=== PATIENT | male | born 1945 | race Hispanic/Latino ===

== ENCOUNTER 2016-12-14 18:23 | Inpatient (IN) | payer MEDICARE, BC ==
--- OUTSIDE RECORDS SUMMARY | 2016-12-14 19:03 | XMS REPORT | Continuity of Care Document ---
:1945 Author Organization [facility] ([facility]) Address [address] [place] [address] Phone [phone] Care Team Providers Name Role Phone Yakelin Rousseau Primary Care Provider [phone] Source Comments This disclosure is being made pursuant to the Care Everywhere program, applicable federal and state laws, and may not contain all informaitonavailable regarding this patient.[facility] ([facility]) Active Allergies and Adverse Reactions Allergen Noted Date Severity Reactions Comments Hydrocodone Bitartrate 12/18/2014 Unknown Hydrocodone-Acetaminophen 05/02/2011 OTHER "Gets cold" Disoriented. Other drugs in this classification as well. Current Medications Prescription Sig. Disp. Refills Start Date End Date Status atorvastatin (LIPITOR) Take 40 mg by mouth Active 80 mg tablet daily furosemide 40 mg Take 40 mg by mouth Active tablet daily. Insulin Asp inject subcutaneously Active Prt-Insulin Aspart 100 2 times daily. unit/mL (70-30) Soln metFORMIN 1,000 mg Take 1,000 mg by mouth 10/02/2012 Active tablet 2 times daily nortriptyline 25 mg Take 25 mg by mouth 05/27/2012 Active capsule daily Take 2 capsules daily carvedilol 12.5 mg Take 12.5 mg by mouth 05/27/2012 Active tablet 2 times daily LEVOTHYROXINE 100 mcg Take 100 mcg by mouth 03/22/2015 Active tablet daily. LATANOPROST 0.005 % 03/11/2015 Active ophthalmic solution LISINOPRIL 10 mg Take 10 mg by mouth 2 05/04/2015 Active tablet times daily SUPPLY insulin syringe 04/25/2015 Active w/ needle U-100 1 mL 30 g x 5/16" allopurinol 100 mg daily. 10/06/2015 Active tablet ergocalciferol 11/02/2015 Active (VITAMIN D2) 50,000 unit capsule fluticasone 50 11/16/2015 Active mcg/Actuation nasal spray NOVOLIN 70/30 100 11/23/2015 Active unit/mL injection vial potassium chloride 10 10/09/2015 Active mEq XR tablet traMADol 50 mg tablet Take 100 mg by mouth 2 11/30/2015 Active times daily as needed. VENTOLIN HFA 90 07/09/2016 Active mcg/Actuation inhaler aspirin 81 mg EC Take 1 tablet (81 mg 11 08/09/2016 Active tablet total) by mouth daily. Active Problems Problem Noted Date LEARY (dyspnea on exertion) 12/21/2014 Overview: [place]:extensive evaluation of his shortness of breath 2014 including an adenosine Cardiolite scan which demonstrated no evidence for inducible ischemia. Echocardiography demonstrated normal leftventricular function and normal functioning bioprosthetic valve. This was unchanged from previous echocardiograms performed in 2011 as well as 2012. Coronary artery disease 12/18/2014 Overview: Formatting of this note may be different from the original. History of coronary artery bypass grafting surgery and aortic valve replacement utilizing a #23 Magna pericardial bioprosthesis performed in [place] 01/13 CARDIOVASCULAR PROCEDURES ECHO/MUGA: Echo (Normal LV function. 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 Pulse 72 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 Temperature - - Respiratory Rate - - Height 1.702 m (5' 7") 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 Weight 113.853 kg (251 lb) 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 Body Mass Index 39.3 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 Oxygen Saturation - - Plan of Care Date Type Specialty Providers Description 02/12/2017 Appointment Heart and Vascular Sangita Womack MD Chief Comp: Patient [address] [place] [address] Visit [phone] (Fax) Health Maintenance Due Date Last Done Comments Hepatitis B Vaccine (1 of 3 - Primary Series) 1945 Tdap Vaccine 12/29/1954 Lipid Disorder Screening 12/29/1961 Td Vaccine 12/29/1961 Colonoscopy 12/29/1993 Prostate Cancer Screening 12/29/1993 Zoster Vaccine 2003 Pneumococcal Vaccine (1 of 2 - PCV13) 12/29/2008 Influenza Vaccine: Seasonal (#1) 03/05/2016 Results from Last 3 Months Not on file
--- NOTE | 2016-12-14 19:31 | ERNOTE ---
<Cholo Tomlinson - Last Filed: 12/14/16 20:37> Medical Problem HPI - Narrative Date of Service: 12/14/16 - General Chief Complaint: General Assessment Time Seen by Provider: 12/14/16 18:57 Source: patient, family - Immun/Allergies/Home Medications Immunizations: IMMUNIZATION HX Immunizations Up to Date Yes History of Influenza Vaccine No Hx Pneumococcal Vaccination No Allergies/Adverse Reactions: Allergies hydrocodone bitartrate [From Vicodin] Allergy (Verified 12/14/16 20:03) Home Medications: HOME MEDICATIONS Atorvastatin Calcium [Lipitor] 40 mg PO DAILY 02/24/15 [Last Taken Unknown] Carvedilol [Coreg] 12.5 mg PO BID 02/24/15 [Last Taken Unknown] Insul NPH Hu Rec/Ins Rg Hu Rec [Novolin 70/30] 80 units SC BID 02/24/15 [Last Taken Unknown] Levothyroxine Sodium [Synthroid] 100 mcg PO DAILY 02/24/15 [Last Taken Unknown] Lisinopril [Zestril] 10 mg PO BID 02/24/15 [Last Taken Unknown] Potassium Chloride [Klor-Con 10] 10 meq PO DAILY 02/24/15 [Last Taken Unknown] metFORMIN HCL [Glucophage] 1,000 mg PO BIDWM 02/24/15 [Last Taken Unknown] traMADol HCL [Ultram] 50 mg PO Q8H PRN 05/21/15 [Last Taken Unknown] Aspirin [Aspir-Low] 81 mg PO DAILY 12/14/16 [Last Taken Unknown] Furosemide [Lasix] 40 mg PO DAILY 12/14/16 [Last Taken Unknown] Omeprazole 40 mg PO DAILY 12/14/16 [Last Taken Unknown] Wheat Dextrin [Benefiber] 1 each PO DAILY 12/14/16 [Last Taken Unknown] - History of Present History Narrative: ACTING GROGGY AND C/O OF DECREASED VISUAL ACUITY SINCE HE HAD SURGERY AT [facility] ON SATURDAY, ( 11 DECEMBER) FOR LEFT ANKLE FUSION. SAYS HE HAS BEEN TAKING TRAMADOL. HE HAS HX OF TOLERANCE PROBLEMS WITH CODEINE/HYDROCODONE MEDS, BUT HE SAYS HE HAD BEEN TAKING TRAMADOL EVEN BEFORE THE SURGERY WITHOUT PROBLEMS. THEY DENY OTHER NEW MEDS EXCEPT FOR CEPHALEXIN. HE DENIES FOCAL WEAKNESS OR SLURRED SPEECH THOUGH SAYS HE IS VERY SLOW OF SPEECH , ACTING GROGGY. Review of Systems - Review of Systems Constitutional: Present: See HPI EYE: Present: vision changes ENT: Present: no symptoms reported Respiratory: Present: no symptoms reported Cardiology: Present: no symptoms reported Gastrointestinal/Abdominal: Present: no symptoms reported Genitourinary: Present: no symptoms reported Musculoskeletal: Present: no symptoms reported Skin: Present: no symptoms reported Neurological: Present: See HPI Endocrine: Present: no symptoms reported Hematologic/Lymphatic: Present: no symptoms reported Psych: Present: no symptoms reported All Other Systems: All systems neg except as marked - Patient's Past Medical History Patient History - Medical: Arthritis, Diabetes Type 2, Obesity Patient History - Cardiac/Respiratory: Hypertension, Other Patient History - Cancer: No Hx of Cancer Patient History - Surgical Procedures: Coronary Bypass Surgery Patient History - Other: None - Family History Mother Family History - Medical: , History Unknown Father Family History - Medical: Family History - Cardiac/Respiratory: CVA/Stroke Sister Family History - Medical: - Social History Living Situations: home Abuse History: No History of abuse Psych History: Hx of Anxiety Smoking Status: Never smoker Alcohol Use: none Drug Use: none - Immunizations Immunizations Up to Date: Yes Hx Pneumococcal Vaccination: No History of Influenza Vaccine: No Physical Exam - Physical Exam General Appearance: Present: wd/wn - OBESE 70 YO MAN, PLEASANT AND ALERT BUT WITH SLOW VERBAL RESPONSES BUT NOT SLURRED AND SEEMS ORIENTED. , alert, no apparent distress Eye Exam: Normal inspection: bilateral, PERRL: bilateral, EOMI: bilateral Ears, Nose, Throat: Present: normal ENT inspection Neck: Present: normal inspection, nontender Respiratory: Present: no respiratory distress, normal breath sounds, no accessory muscle use, chest nontender Cardiovascular/Chest: Present: regular rate, rhythm, normal peripheral pulses Gastrointestinal/Abdominal: Present: nontender, soft Extremity Exam: Present: normal except - - ANTERIOR TIBIAL VENOUS STASIS ON RIGHT . LEFT LOWER LEG IS SPLINTED WITH PINK TOES WITH GOOD REFILL AND NL SENSATION. Skin Exam: Present: normal color ED Progress - Vital Signs Patient's Vital Signs:: I have reviewed the patient's vital signs. Vital Signs: Vital Signs 12/14/16 18:51 Temperature 36.8 C Pulse Rate 72 Respiratory 18 Rate Blood Pressure 120/47 O2 Sat by Pulse 94 Oximetry - Progress/Reassessment Chief Complaint: General Assessment Progress:: Unchanged - Transfer of Care Physician Sign Out: Cholo Tomlinson Receiving Physician: Sendy Jarrett Expected Disposition: Discharge Departure - Departure Clinical Impression: Decreased visual acuity Medication side effect Qualifiers: Encounter type: initial encounter Qualified Code(s): T88.7XXA - Unspecified adverse effect of drug or medicament, initial encounter Altered mental status, unspecified Qualifiers: Altered mental status type: unspecified Qualified Code(s): R41.82 - Altered mental status, unspecified Disposition: [facility] Condition: Fair <Sendy Jarrett - Last Filed: 12/14/16 20:54> Medical Problem HPI - Immun/Allergies/Home Medications Immunizations: IMMUNIZATION HX Immunizations Up to Date Yes History of Influenza Vaccine No Hx Pneumococcal Vaccination No ED Progress - Vital Signs Vital Signs: Vital Signs 12/14/16 12/14/16 12/14/16 18:51 19:54 20:19 Temperature 36.8 C Pulse Rate 72 71 68 Respiratory 18 18 18 Rate Blood Pressure 120/47 139/48 139/47 O2 Sat by Pulse 94 94 94 Oximetry Plan - Plan Plan: sign out received by previous provider who saw, examined patient and ordered tests/head CT. Pt is here for increased dizziness and somnolence. CT head reveals low area of attenuation right occipital lobe. Can not rule out Acute infarct. Hospitalist[facility]na notified and pt to be admitted
[2016-12-14 19:33] LABS: Hematocrit 33.3 % (42.0-52.0); Mean Corpuscular Hemoglobin 29.4 pg (27-31); Mean Platelet Volume 11.1 fl (6.0-9.5); Neutrophil # 6.8 K/mm3 (1.3-6.0); Neutrophil % 69.3 % (42-75.0); Platelet Count 168 K/mm3 (150-450); Red Blood Count 3.74 M/mm3 (4.7-6.0); Red Cell Distribution Width 14.1 % (11.5-14.0); White Blood Count 9.8 K/mm3 (4.0-10.5)
[2016-12-14 19:36] LABS: Urine Bilirubin Negative (NEGATIVE); Urine Blood Negative /ul (NEGATIVE); Urine Ketone Negative (NEGATIVE); Urine Nitrite Negative (NEGATIVE); Urine Protein 15 mg/dL (NEGATIVE); Urine Specific Gravity 1.015 SP.GR. (1.005-1.030); Urine Urobilinogen Normal (NORMAL)
[2016-12-14 19:42] LABS: Urine Appearance Clear; Urine Bacteria None Seen; Urine Color Dark Yellow; Urine RBC None Seen /hpf (0-5); Urine WBC None Seen /hpf (0-5)
[2016-12-14 19:57] LABS: Albumin * 2.5 gm/dl (3.4-5.0); Anion Gap 13.4 mmol/L (6.8-13.8); BUN/Creatinine Ratio 18.1 (9.0-21.6); Bilirubin, Total 0.7 mg/dL (0.0-1.1); Ca. Corrected For Albumin 9.9 mg/dL (8.4-10.2); Carbon Dioxide 27.3 mmol/L (24-32.6); Potassium 4.7 mmol/L (3.4-4.6); TSH * 0.279 uIU/mL (0.358-3.74); Total Protein 6.5 gm/dL (6.2-8.2)
[2016-12-14 20:33] LABS: Cocaine Ur Negative (NEGATIVE); Urine Barbiturate Negative (NEGATIVE); Urine Benzodiazepines Negative (NEGATIVE); Urine Opiates Negative (NEGATIVE); Urine PCP Negative (NEGATIVE); Urine THC Negative (NEGATIVE)
--- OUTSIDE RECORDS SUMMARY | 2016-12-14 20:40 | XMS REPORT | Continuity of Care Document ---
:1945 Author Organization [facility] ([facility]) Address [address] [place] [address] Phone [phone] Care Team Providers Name Role Phone Yakelin Rousseau Primary Care Provider [phone] Source Comments This disclosure is being made pursuant to the Care Everywhere program, applicable federal and state laws, and may not contain all informaitonavailable regarding this patient.[facility] ([facility]) Active Allergies and Adverse Reactions Allergen [...] a #23 Magna pericardial bioprosthesis performed in [place] 01/13 CARDIOVASCULAR PROCEDURES ECHO/MUGA: Echo (Normal LV [...] Taken Blood Pressure 120/70 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
--- NOTE | 2016-12-14 21:53 | HP ---
Chief Complaint - Chief Complaint Date of Service: 12/14/16 Time of Service: 21:52 Chief Complaint: decreased LOC History of Present Illness: Pt is a 70 year old male pt of Dr. Rousseau who presented to [facility] ER with complaints of decreased LOC and delayed speech. Pt states today he just felt much more tired than usual. Per he was also having decreased speech and blurred eye sight with difficulty gauging distance. Denies n/v, recent illness, fever/chills, headache, confusion or weakness. Last known normal was yesterday ( 12/13/16) evening. Pt just recently (12/11/16) had a fusion of the left ankle joint completed at [facility] in [place]. Pt was prescribed Ultram for pain but has not taken any in two days. PMH includes: aortic stenosis, CAD, DMII, Gout, HLD, HTN, obesity, EARLINE with CPAP use. ER workup included a CT of head which showed a right occipital low attenuation, cannot exclude acute infarct-recommend MRI for f/u . Laboratory findings included: TSH 0.279, Na+138 , K+4.7, h/h 11/33.3, BUN/Creat 21/1.16, WBC 9.8. UA and urine drug screen were negative. He will be admitted to observation overnight for further monitoring and testing. - Patient's Past Medical History Patient History - Medical: Arthritis, Diabetes Type 2, Hypothyroidism, Obesity Patient History - Cardiac/Respiratory: Coronary Heart Disease, Hypertension, CPAP/BiPAP Home Use, Sleep Apnea, Other Patient History - Cancer: No Hx of Cancer Patient History - Surgical Procedures: Coronary Bypass Surgery, Orthopedic - left ankle fusion 12/11/16, carpel tunnel OR Patient History - Other: None - Family History Mother Family History - Medical: , Diabetes Type 1 Family History - Cardiac/Respiratory: No pertinent hx Family History - Cancer: No pertinent family hx Father Family History - Medical: , Diabetes Type 1 Family History - Cardiac/Respiratory: CVA/Stroke Family History - Cancer: No pertinent family hx Sister Family History - Medical: Family History - Cardiac/Respiratory: No pertinent hx Family History - Cancer: History Unknown - Social History Living Situations: home Abuse History: No History of abuse Psych History: Hx of Anxiety Does anyone smoke in the home?: No Smoking Status: Never smoker Have you smoked in the past 12 months: No Alcohol Use: none Drug Use: none - Immunizations Immunizations Up to Date: Yes Hx Pneumococcal Vaccination: More Information Required to Determine History of Influenza Vaccine: Yes Review Of Systems (GEN) - Review of Systems Generalized/Overall Review: Present: Fatigue EENTM: Present: Blurred Vision - with difficulty focusing Respiratory: Present: No Symptoms Reported Cardiac: Present: No Symptoms Reported Abdominal: Present: Diarrhea - states took miralax following constipation post surgery. Genitourinary: Present: No Symptoms Reported Musculoskeletal: Present: No Symptoms Reported Neurological: Present: No Symptoms Reported Skin: Present: No Symptoms Reported Endocrine: Present: No Symptoms Reported Immunizations: IMMUNIZATION HX Immunizations Up to Date Yes History of Influenza Vaccine No Hx Pneumococcal Vaccination No Allergies/Adverse Reactions: Allergies Allergy/AdvReac Type Severity Reaction Status Date / Time hydrocodone bitartrate Allergy Verified 12/14/16 20:03 [From Vicodin] Home Medications: HOME MEDICATIONS Atorvastatin Calcium [Lipitor] 40 mg PO DAILY 02/24/15 [Last Taken Unknown] Carvedilol [Coreg] 12.5 mg PO BID 02/24/15 [Last Taken Unknown] Insul NPH Hu Rec/Ins Rg Hu Rec [Novolin 70/30] 80 units SC BID 02/24/15 [Last Taken Unknown] Levothyroxine Sodium [Synthroid] 100 mcg PO DAILY 02/24/15 [Last Taken Unknown] Lisinopril [Zestril] 10 mg PO BID 02/24/15 [Last Taken Unknown] Potassium Chloride [Klor-Con 10] 10 meq PO DAILY 02/24/15 [Last Taken Unknown] metFORMIN HCL [Glucophage] 1,000 mg PO BIDWM 02/24/15 [Last Taken Unknown] traMADol HCL [Ultram] 50 mg PO Q8H PRN 05/21/15 [Last Taken Unknown] Aspirin [Aspir-Low] 81 mg PO DAILY 12/14/16 [Last Taken 12/14/16] Furosemide [Lasix] 40 mg PO DAILY 12/14/16 [Last Taken Unknown] Omeprazole 40 mg PO DAILY 12/14/16 [Last Taken Unknown] Wheat Dextrin [Benefiber] 1 each PO DAILY 12/14/16 [Last Taken Unknown] Exam - Exam Vital Signs: Vital Signs - Last Taken Temp 37.3 C 12/14/16 21:05 Pulse 70 12/14/16 21:05 Resp 18 12/14/16 21:05 BP 115/53 12/14/16 21:05 Pulse Ox 95 RA 12/14/16 21:05 Constitutional: Present: Alert, Oriented x3, Cooperative, No distress ENT Exam: Present: normal ENT inspection, hearing grossly normal Eye Exam: bilateral eye: normal inspection, PERRL Back Exam: Present: normal inspection Respiratory: Present: chest non-tender, no respiratory distress, no accessory muscle use, decreased breath sounds Cardiovascular/Chest: Present: normal peripheral pulses, regular rate, rhythm, no chest tenderness, no edema, no gallop, no JVD, no murmur Peripheral Pulses: dorsalis-pedis (R): 1+, dorsalis-pedis (L): 0 - YOSSI, radial ( R): 1+, radial (L): 1+ Abdomen: Present: Normal bowel sounds, soft, nontender, nondistended, no rebound tenderness, no hepatospenomegaly Extremity: Present: normal range of motion, non-tender, normal inspection, no calf tenderness, lower extremity edema - +1 nonpitting Skin Exam: Present: normal color, warm/dry, no cyanosis, other - 6inx2.5in area of erythema and warmth to right lower girard, per pt this is chronic, consistent with venous stasis. No calf tenderness present. LLE in cast post left ankle fusion. Lymphatic: Present: no adenopathy Neurologic: Present: no motor/sensory deficits, alert, normal mood/affect, oriented x 3 Appearance: Present: appropriate appearance, appropriate insight, neat, no memory impairment Eye contact: Present: cooperative, good eye contact, normal speech Thoughts: Present: normal thought pattern, no apparent hallucination Diagnostic Studies: Laboratory Results Laboratory Tests 12/14/16 12/14/16 12/14/16 19:28 19:28 19:28 WBC 9.8 Hgb 11.0 L Hct 33.3 L Plt Count 168 Sodium 138 Potassium 4.7 H Anion Gap 13.4 BUN 21 Creatinine 1.16 Random Glucose 99 Total Bilirubin 0.7 AST 21 ALT 26 Alkaline Phosphatase 69 Total Protein 6.5 Albumin 2.5 L TSH 0.279 L Urine Ketones Negative Urine Nitrate Negative Ur Leukocyte Esterase Negative Urine Opiates Screen Barbiturate Screen Ur Phencyclidine Scrn Urine Amphetamine U Benzodiazepines Scrn Urine Cocaine Screen Urine Marijuana (THC) 12/14/16 19:28 WBC Hgb Hct Plt Count Sodium Potassium Anion Gap BUN Creatinine Random Glucose Total Bilirubin AST ALT Alkaline Phosphatase Total Protein Albumin TSH Urine Ketones Urine Nitrate Ur Leukocyte Esterase Urine Opiates Screen Negative Barbiturate Screen Negative Ur Phencyclidine Scrn Negative Urine Amphetamine Negative U Benzodiazepines Scrn Negative Urine Cocaine Screen Negative Urine Marijuana (THC) Negative Assessment/Plan - Assessment/Plan (1) CVA (cerebral vascular accident) Assessment: AMS likely due to right occipital infarct following LLE ankle surgery. Will continue to monitor with Q2H neuro checks over night. Likely need MRI in morning for further evaluation of area. Drug screen and UA negative r/o other causes of AMS. -Neuro checks Q2H -MRI in am Problem: Suspected Qualifiers: Laterality of affected vessel: right (2) Altered mental status, unspecified Assessment: AMS likely due to right occipital infarct following LLE ankle surgery. Will continue to monitor with Q2H neuro checks over night. Hold ASA tonight due to risk of bleeding. Likely need MRI in morning for further evaluation of area. Drug screen and UA negative r/o other causes of AMS. -Neuro checks Q2H -MRI in am Problem: Acute Qualifiers: Altered mental status type: unspecified Qualified Code(s): R41.82 - Altered mental status, unspecified (3) Diabetes mellitus Assessment: Stable -Accu checks ac/hs -Metformin 1000mg BID -NPH 70/30 80U BID -Consistent Carb diet Problem: Chronic Qualifiers: Diabetes mellitus type: type 2 Diabetes mellitus complication status: without complication (4) Hypertension Assessment: BP have been well controlled: Selected Entries 12/14/16 12/14/16 12/14/16 20:19 20:54 21:05 Pulse Rate 68 75 70 Blood Pressure 139/47 144/48 115/53 Blood Pressure 77 80 73 Mean continue to monitor BP closely, maintain SBP <150. Continue current home doses of Lisinopril and Coreg. -VS Q6HR -Continue Lisinopril and Coreg -Maintain SBP <150 Problem: Chronic Qualifiers: Hypertension type: essential hypertension Qualified Code(s): I10 - Essential (primary) hypertension (5) Hypothyroidism Assessment: TSH on admission labs 0.279, will decrease synthroid from 100mcg to 75mcg. Repeat labs as outpt for follow up. -Decrease synthroid Problem: Chronic Qualifiers: Hypothyroidism type: acquired Qualified Code(s): E03.9 - Hypothyroidism, unspecified (6) Left ankle effusion Assessment: S/p OR on 12/11/16 at outside facility. -NWB -Pain control with ibuprofen -Elevate extremity while in bed Problem: Acute
[2016-12-14] MEDS ORDERED: CARVEDILOL 25 MG TABLET ONE (23:28)
[2016-12-14] MEDS: CARVEDILOL 12.5 MG TABLET PO SCH (23:32)
[2016-12-14] MEDS: LISINOPRIL 10 MG TABLET PO SCH (23:33)
[2016-12-15 04:39] LABS: Hematocrit 30.8 % (42.0-52.0); Hemoglobin 10.2 gm/dL (13.5-18.0); Mean Corpuscular Hemoglobin 29.5 pg (27-31); Mean Corpuscular Hgb Conc 33.1 g/dl (32-36); Mean Platelet Volume 11.7 fl (6.0-9.5); Neutrophil # 4.8 K/mm3 (1.3-6.0); Neutrophil % 63.1 % (42-75.0); Platelet Count 159 K/mm3 (150-450); Red Blood Count 3.46 M/mm3 (4.7-6.0); Red Cell Distribution Width 14.4 % (11.5-14.0); White Blood Count 7.7 K/mm3 (4.0-10.5)
[2016-12-15 04:57] LABS: Albumin * 2.2 gm/dl (3.4-5.0); BUN/Creatinine Ratio 17.9 (9.0-21.6); Bilirubin, Total 0.6 mg/dL (0.0-1.1); Ca. Corrected For Albumin 9.8 mg/dL (8.4-10.2); Calcium * 8.7 mg/dL (7.9-10.9); Carbon Dioxide 27.5 mmol/L (24-32.6); Potassium 4.5 mmol/L (3.4-4.6); Total Protein 5.9 gm/dL (6.2-8.2)
[2016-12-15] MEDS ORDERED: LEVOTHYROXINE SODIUM 75 MCG TABLET PO SCH (07:00)
[2016-12-15] MEDS ORDERED: PANTOPRAZOLE SODIUM 40 MG TABLET.EC PO SCH (07:00)
[2016-12-15] MEDS ORDERED: POTASSIUM CHLORIDE 10 MEQ TABLET.SA PO SCH (09:00)
[2016-12-15] MEDS ORDERED: ASPIRIN 81 MG TABLET.DR PO SCH (09:00)
[2016-12-15] MEDS ORDERED: ATORVASTATIN CALCIUM 40 MG TABLET PO SCH (09:00)
[2016-12-15] MEDS ORDERED: PSYLLIUM SEED 1 PACKET PACKET PO SCH (09:00)
[2016-12-15] MEDS ORDERED: FUROSEMIDE 40 MG TABLET PO SCH (09:00)
[2016-12-15] MEDS: LISINOPRIL 10 MG TABLET PO SCH ×2 (09:29→21:23)
[2016-12-15] MEDS: CARVEDILOL 12.5 MG TABLET PO SCH ×2 (09:29→21:23)
[2016-12-15] MEDS: INSUL NPH HU REC/INS RG HU REC 100 UNITS/ML VIAL SC SCH ×2 (09:36→21:28)
--- NOTE | 2016-12-15 19:59 | PN ---
Subjective - Date and Time Seen Date: 12/15/16 Time: 14:00 Objective Objective Narrative: C/o difficulty in seeing objects in both eyes since early this morning; also had similar problems since surgery but not as bad. Occasional dizziness. No weakness in extremities. Pain under control from surgery. - Review of Systems EENTM: Reports: Blurred Vision Respiratory: Denies: Shortness of Breath, Orthopnea Cardiac: Denies: Chest Pain, Edema - Vitals Vitals: Vital Signs Temp 36.8 C 12/15/16 14:51 Pulse 69 12/15/16 14:51 Resp 20 12/15/16 14:51 BP 127/53 12/15/16 14:51 Pulse Ox 95 12/15/16 14:51 - Abnormal Lab Findings Abnormal Lab Findings: Laboratory Tests 12/15/16 04:38 WBC 7.7 D Hgb 10.2 L Hct 30.8 L Plt Count 159 12/15/16 04:38 Plasma Sodium 140 Potassium 4.5 Chloride 103 Carbon Dioxide 27.5 BUN 20 Creatinine 1.12 Est GFR (Non-Af Amer) 68 Random Glucose 178 H D Calcium Adj for Albumin 9.8 Total Bilirubin 0.6 AST 18 ALT 23 Alkaline Phosphatase 62 Total Protein 5.9 L Albumin 2.2 L - Exam Constitutional: Present: Elderly, Obese - in NAD ENT Exam: Present: hearing grossly normal, moist mucous membranes Respiratory: Present: lungs clear, decreased breath sounds - at bases due to obesity. Absent: no accessory muscle use Cardiovascular/Chest: Present: regular rate, rhythm, systolic murmur - II/ at LSB Abdomen: Present: Normal bowel sounds, soft, nontender, obese Extremity: Present: normal range of motion, non-tender Skin Exam: Present: warm/dry, pallor Assessment/Plan Plan Narrative: 1. RT occipital infarct : with decrease in vision. Patient will be started on clopidogrel 75 mg PO daily and atorvastatin 40 mg PO daily today. Will need US of carotids, MRA/ MRI of head on 12/15. Possible neuro consult. May require home health care etc. 2. LT ankle fusion: on 12/11/2016 at [facility]. 3. Other medical conditions: HTN, T2 DM, S/P AVR, EARLINE on CPAP, HLD, hypothyroidism, obesity with BMI 37.0 which are chronic and stable.
[2016-12-15] MEDS ORDERED: ROSUVASTATIN CALCIUM 10 MG TABLET PO SCH ×2 (21:00)
[2016-12-15] MEDS ORDERED: ENOXAPARIN SODIUM 40 MG/0.4 ML SYRG SC SCH (21:00)
--- NOTE | 2016-12-15 21:11 | PN ---
Progess Note - Interim Narrative: 12/15/16 21:07 20:50 Called and spoke with Tiago Mccall in the [facility] neurology department. She advises that since pt visual acuity is continuing to decline, he should be transferred to a higher level of care facility with a stroke center. 20:55 Dr. Giron notified of decision to transfer pt, agreeable to transfer. Pt notified of need to transfer to a higher level of care facility with neurology and certified stroke center. Pt agrees to transfer. 21:10 Transfer department at the [facility] called and paperwork began for transfer.
[2016-12-15 21:12] VITALS: BP 128/53
[2016-12-16] MEDS ORDERED: CLOPIDOGREL BISULFATE 75 MG TABLET PO SCH (09:00)
--- NOTE | 2016-12-19 12:32 | DS ---
Transfer Discharge Summary - Diagnosis(s)/Problems (1) CVA (cerebral vascular accident) Problem: Acute (2) Altered mental status, unspecified Problem: Acute (3) Diabetes mellitus Problem: Chronic (4) Hypertension Problem: Chronic (5) Hypothyroidism Problem: Chronic (6) Left ankle effusion Problem: Acute - Course Description of Stay: Pt was admitted 12/14/16 for CVA of the right occipital lobe following a one week complaint for blurred vision and fatigue after sugery on 12/11/16 for a left ankle fusion. He was admitted to the floor and continued to have decrease in his vision. The [facility] neurology was called and consulted, they recommended to transfer him to there facility (a stroke center) for closer monitoring and follow up. Procedures Performed: none - Medications Medications: Active Medications Discontinued Medications Aspirin (Aspirin Enteric Coated) 81 mg PO DAILY [facility] Stop: 01/14/17 09:01 Last Admin: 12/15/16 09:29 Dose: 81 mg Carvedilol (Coreg) 12.5 mg PO BID [facility]BERT Stop: 01/13/17 22:31 Last Admin: 12/15/16 21:23 Dose: 12.5 mg Enoxaparin Sodium (Lovenox) 40 mg SC HS [facility] Stop: 01/14/17 21:01 Last Admin: 12/15/16 21:28 Dose: 40 mg Furosemide (Lasix) 40 mg PO DAILY [facility] Stop: 01/14/17 09:01 Last Admin: 12/15/16 09:30 Dose: 40 mg Insulin Human Isoph/Insulin Regular (Novolin 70/30) 80 units SC BID [facility] Stop: 01/14/17 09:01 Last Admin: 12/15/16 21:28 Dose: 80 units Levothyroxine Sodium (Synthroid) 75 mcg PO DAILY@0700 [facility] Stop: 01/14/17 07:01 Last Admin: 12/15/16 07:40 Dose: 75 mcg Lisinopril (Zestril) 10 mg PO BID [facility] Stop: 01/13/17 22:31 Last Admin: 12/15/16 21:23 Dose: 10 mg Metformin HCl (Glucophage) 1,000 mg PO BIDWM [facility] Stop: 01/14/17 09:01 Last Admin: 12/15/16 17:00 Dose: 1,000 mg Pantoprazole Sodium (Protonix) 40 mg PO DAILY@0700 [facility] Stop: 01/14/17 07:01 Last Admin: 12/15/16 07:40 Dose: 40 mg Potassium Chloride (Klor-Con 10) 10 meq PO DAILY [facility] Stop: 01/14/17 09:01 Last Admin: 12/15/16 09:31 Dose: 10 meq Psyllium Hydrophilic Mucilloid (Metamucil) 1 each PO DAILY [facility] Stop: 01/14/17 09:01 Last Admin: 12/15/16 09:30 Dose: 1 each Rosuvastatin Calcium (Crestor) 20 mg PO HS [facility] Stop: 01/14/17 21:01 Last Admin: 12/15/16 21:28 Dose: 20 mg - Disposition Disposition: [facility] Condition: Fair Discharge Date: 12/15/16 Discharge Time: 21:30
== END 2016-12-15 22:56 | disposition short-term general hospital (02) | DRG 66 ==
LOC: ER 18:23 → OBSVTOIN 20:36 → MS 20:36
PROVIDERS: ADMIT Nurse Practitioner Gerontology; ATTEND Internal Medicine
DX: I63.8 Other cerebral infarction (principal); R47.01 Aphasia; H53.8 Other visual disturbances; R41.82 Altered mental status, unspecified; I10 Essential (primary) hypertension; E78.5 Hyperlipidemia, unspecified; E03.9 Hypothyroidism, unspecified; E11.9 Type 2 diabetes mellitus without complications; I25.10 Atherosclerotic heart disease of native coronary artery without angina pectoris; Z79.82 Long term (current) use of aspirin; Z79.4 Long term (current) use of insulin; Z95.1 Presence of aortocoronary bypass graft; Z98.1 Arthrodesis status

== ENCOUNTER 2017-01-17 10:45 | Inpatient (IN) | payer MEDICARE, BC ==
--- OUTSIDE RECORDS SUMMARY | 2017-01-17 11:00 | XMS REPORT | Continuity of Care Document ---
:1945 Author Organization [facility] ([facility]) [place] [address] Phone [phone] Care Team Providers Name Role Phone Yakelin Rousseau Primary Care Provider [phone] Source Comments This disclosure is being made pursuant to the Care Everywhere program, applicable federal and state laws, and may not contain all informaitonavailable regarding this patient.[facility] ([facility]) Active Allergies and Adverse Reactions Allergen Noted Date Severity Reactions Comments Hydrocodone Bitartrate 12/18/2014 Unknown Hydrocodone-Acetaminophen 05/02/2011 OTHER "Gets cold" Disoriented. Other drugs in this classification as well. Current Medications Prescription Sig. Disp. Refills Start End Date Status Date metFORMIN 1,000 mg Take 1,000 mg by Active tablet mouth 2 times 3 daily LEVOTHYROXINE 100 Take 100 mcg by Active mcg tablet mouth daily. 5 LATANOPROST 0.005 % Instill 1 Drop Active ophthalmic solution onto both eyes 5 every evening. fluticasone 50 Use 1 [place] into Active mcg/Actuation nasal both nostrils 6 spray daily as needed. VENTOLIN HFA 90 Use 1 Puff by Active mcg/Actuation inhalation daily 6 inhaler as needed. aspirin 81 mg EC Take 1 tablet (81 11 Active tablet mg total) by mouth 7 daily. wheat dextrin Take 1 Dose by Active (BENEFIBER SUGAR mouth daily as FREE (DEXTRIN)) 3 needed. gram/4 gram powd atorvastatin Take 1 tablet (80 Active (LIPITOR) 80 mg mg total) by mouth 7 tablet daily. pantoprazole 40 mg Take 1 tablet (40 Active EC tablet mg total) by mouth 7 daily. metoPROLol tartrate Take 0.5 tablets Active 25 mg tablet (12.5 mg total) by 7 mouth every 12 hours. lisinopril 10 mg Take 1 tablet (10 Active tablet mg total) by mouth 7 daily. gabapentin 100 mg Take 1 capsule Active capsule (100 mg total) by 7 mouth 3 times daily. hydrocortisone 1 % Apply topically 2 30 g Active topical ointment times daily. 7 insulin lispro Inject 1-5 Units Active (HumaLOG) 100 subcutaneously 3 7 unit/mL injection times daily with vial meals. Give even if NPO. Give based on glucose results.GLUCOSE LEVEL (mg/dl)150-199 give [id number] give 2 [id number] give 3 -544 give4 -092 give 5 [id number] or greater - Call Attending apixaban (ELIQUIS) Take 1 tablet (5 60 tablet 0 Active 5 mg tablet mg total) by mouth 7 2 times daily. Please start 12/25/16 IF no bleed on repeat head CT 10 days after stroke insulin nph-regular Inject 5 Units 10 mL Active (HumuLIN 70/30) 100 subcutaneously 7 unit/mL injection daily before vial dinner. insulin nph-regular Inject 24 Units 10 mL Active (HumuLIN 70/30) 100 subcutaneously 7 unit/mL injection every morning vial before breakfast. atorvastatin Take 40 mg by 12/20/19 Discontinued (LIPITOR) 80 mg mouth daily 17 tablet furosemide 40 mg Take 40 mg by 12/20/19 Discontinued tablet mouth daily. 17 carvedilol 12.5 mg Take 12.5 mg by 12/20/19 Discontinued tablet mouth 2 times 2 17 daily LISINOPRIL 10 mg Take 10 mg by 12/20/19 Discontinued tablet mouth 2 times 5 17 daily allopurinol 100 mg Take 100 mg by 12/20/19 Discontinued tablet mouth daily as 6 17 needed (gout flares). NOVOLIN 70/30 100 Inject 80 Units 12/20/19 Discontinued unit/mL injection subcutaneously 2 6 17 vial times daily before meals. potassium chloride Take 10 mEq by 12/20/19 Discontinued 10 mEq XR tablet mouth daily. 6 17 omeprazole 40 mg Take 40 mg by 12/20/19 Discontinued enteric coated mouth daily. 17 capsule Starting 12/04/16 x 4 weeks insulin nph-regular Inject 25 Units 10 mL 12/21/19 Discontinued (HumuLIN 70/30) 100 subcutaneously 7 17 unit/mL injection every morning vial before breakfast. insulin nph-regular Inject 12 Units 10 mL 12/21/19 Discontinued (HumuLIN 70/30) 100 subcutaneously 7 17 unit/mL injection daily before vial dinner. apixaban (ELIQUIS) Take 1 tablet (5 60 tablet 0 12/21/19 Discontinued 5 mg tablet mg total) by mouth 7 17 2 times daily. insulin nph-regular Inject 9 Units 10 mL 12/21/19 Discontinued (HumuLIN 70/30) 100 subcutaneously 7 17 unit/mL injection daily before vial dinner. insulin nph-regular Inject 28 Units 10 mL 12/21/19 Discontinued (HumuLIN 70/30) 100 subcutaneously 7 17 unit/mL injection every morning vial before breakfast. apixaban (ELIQUIS) Take 1 tablet (5 60 tablet 0 12/21/19 Discontinued 5 mg tablet mg total) by mouth 7 17 2 times daily. Please start 12/24/16 apixaban (ELIQUIS) Take 1 tablet (5 60 tablet 0 12/21/19 Discontinued 5 mg tablet mg total) by mouth 7 17 2 times daily. Please start 12/24/16 IF no bleed on repeat head CT 10 days after discharge apixaban (ELIQUIS) Take 1 tablet (5 60 tablet 0 12/21/19 Discontinued 5 mg tablet mg total) by mouth 7 17 2 times daily. Please start 12/24/16 IF no bleed on repeat head CT 10 days after discharge apixaban (ELIQUIS) Take 1 tablet (5 60 tablet 0 12/21/19 Discontinued 5 mg tablet mg total) by mouth 7 17 2 times daily. Please start 12/24/16 IF no bleed on repeat head CT 10 days after stroke insulin nph-regular Inject 20 Units 10 mL 11 12/21/19 Discontinued (HumuLIN 70/30) 100 subcutaneously 7 17 unit/mL injection every morning vial before breakfast. insulin nph-regular Inject 7 Units 10 mL 12/21/19 Discontinued (HumuLIN 70/30) 100 subcutaneously 7 17 unit/mL injection daily before vial dinner. Active Problems Problem Noted Date ELARY (dyspnea on exertion) 12/21/2014 Overview: 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 Normal bioprosthetic AoV) - 05/13/2012 Echo (Normal EF, Normal functioning AVR) - 07/01/2013 Adiposity 05/11/2014 Hypercholesterolemia without hypertriglyceridemia 10/13/2013 Most Recent Encounters Date Type Specialty Providers Description 12/21/2016 Telephone Lacquer Shader Qing Vance [place] [facility] [place] 12/19/2016 Orders/Notes Neurology Christopher Colón MD 12/17/2016 [facility] Chief Comp: Patient Encounter MD Fermin Reported Reason For Visit 12/15/2016 - [facility] General Care [facility] Dx: Adiposity 12/20/2016 Encounter Inpatient - Adult MD Fermin (Primary Dx) 12/15/2016 Telephone Neurology Tiago Mccall Chief Comp: MD Vicente Consultation 11/29/2016 Office Visit Orthopaedic Michael Chief Comp: Patient MD Emili Reported Reason For Visit Immunizations Name Dates Previously Given Next Due Pneumococcal Conjugate, PCV13 (Prevnar 13) 12/20/2016 Social History Tobacco Use Types Packs/Day Years Used Date Never Smoker Smokeless Tobacco: Never Used Alcohol Use Drinks/Week oz/Week Comments No Last Filed Vital Signs Vital Sign Reading Time Taken Blood Pressure 137/50 12/20/2016 11:33 AM CDT Pulse 69 12/20/2016 11:33 AM CDT Temperature 36.5 C (97.7 F) 12/20/2016 11:33 AM CDT Respiratory Rate 19 12/16/2016 5:50 AM CDT Height 1.753 m (5' 9.02") 12/17/2016 2:28 PM CDT Weight 103 kg (227 lb 1.2 oz) 12/17/2016 2:28 PM CDT Body Mass Index 33.52 12/17/2016 2:28 PM CDT Oxygen Saturation 98% 12/20/2016 11:33 AM CDT Plan of Care Date Type Specialty Providers Description 02/12/2017 Appointment Heart and Vascular Sangita Womack MD Chief Comp: Patient [address] [facility] [place] [address] Visit [phone] (Fax) 03/22/2017 Appointment Neurology Indiana Jarrett MD [address] [place] [address] [phone] (Fax) Chief Comp: Patient Anisha Guzmán, [employer] [address] [place] [address] [phone] (Fax) Reported Reason For Visit Health Maintenance Due Date Last Done Comments Hepatitis B Vaccine (1 of 3 - Primary Series) 1945 Tdap Vaccine 12/29/1954 Td Vaccine 12/29/1961 Colonoscopy 12/29/1993 Prostate Cancer Screening 12/29/1993 Zoster Vaccine 2003 Influenza Vaccine: Seasonal (Season Ended) 2017 Pneumococcal Vaccine (2 of 2 - PPSV23) 12/20/2017 12/20/2016 Lipid Disorder Screening 12/16/2021 12/16/2016 Results from Last 3 Months CHEST - AP/PA (12/20/2016 12:06 PM) Impressions Findings / Impression: The portable 90 degrees upright exam does not demonstrate any definite focal lung opacity. The minimal blunting of the CP angles worse on the left side is believed to be from pleural thickening. If clinically concerned can consider a lateral view whenever possible. Postop changes seen in the sternum. The mild prominence of the cardia mediastinal silhouette is likely from the portable nature of the study. Pulmonary edema. No pneumothorax. Trachea central. Narrative Procedure: CHEST - AP/PA Technique: Portable AP chest radiograph Comparison: No prior. Clinical Indication: Pneumonia Procedure Note Saw, Incoming Imaging Results - [place] December 20, 2016 12:28 PM CDT Procedure: CHEST - AP/PA Technique: Portable AP chest radiograph Comparison: No prior. Clinical Indication: Pneumonia IMPRESSION Findings / Impression: The portable 90 degrees upright exam does not demonstrate any definite focal lung opacity. The minimal blunting of the CP angles worse on the left side is believed to be from pleural thickening. If clinically concerned can consider a lateral view whenever possible. Postop changes seen in the sternum. The mild prominence of the cardia mediastinal silhouette is likely from the portable nature of the study. Pulmonary edema. No pneumothorax. Trachea central. BLOOD GLUCOSE, BEDSIDE (12/20/2016 11:36 AM)Only the most recent of21 resultswithin the time period is included. Component Value Range Glucose, Accu-Chek 234(H) 65-99 mg/dL Specimen Blood, capillary DIFFERENTIAL (12/20/2016 7:14 AM)Only the most recent of5 resultswithin the time period is included. Component Value Range % Neutrophils-Auto Diff 62.4 % Neutrophils-Auto Diff 6960 6809-9606 /MM3 % Lymphocytes-Auto Diff 25.2 % Lymphocytes-Auto Diff 2810 875-3300 /MM3 % Monocytes-Auto Diff 10.2 % Monocytes-Auto Diff 1140(H) 130-860 /MM3 % Eosinophils-Auto Diff 1.5 % Eosinophils-Auto Diff 170 40-390 /MM3 % Basophils 0.3 % Basophils-Auto Diff 30 10-136 /MM3 % Immature Granulocytes-Auto Diff 0.4 % Immature Granulocytes-Auto Diff 50 /MM3 Specimen Whole Blood CBC (COMPLETE BLOOD COUNT) (12/20/2016 7:14 AM)Only the most recent of5 resultswithin the time period is included. Component Value Range WBC Count 11.2(H) 3.7-10.5 K/MM3 RBC Count 3.73(L) 4.50-6.20 M/MM3 Hemoglobin 10.6(L) 13.2-17.7 g/dL Hematocrit 33(L) 40-52 % MCV (Mean Corpuscular Volume) 88 82-99 FL MCH (Mean Corpuscular Hemoglobin) 28 25-35 PG MCHC (Mean Corpuscular Hemoglobin Concentration) 32 32-36 % Platelet Count 250 150-400 K/MM3 MPV (Mean Platelet Volume) 12.5(H) 9.4-12.3 FL RBC Dist Width-STD 45.1(H) 35.1-43.9 FL RBC Distrib Width 14.1 9.0-14.5 % Nucleated RBC 0 /100 WBC Specimen Whole Blood PHOSPHORUS (12/20/2016 7:14 AM)Only the most recent of5 resultswithin the time period is included. Component Value Range Phosphorus 2.9Comment:New reference range installed 05/17/15. 2.5-4.5 mg/dL Specimen Blood MAGNESIUM (12/20/2016 7:14 AM)Only the most recent of5 resultswithin the time period is included. Component Value Range Magnesium 2.0 1.5-2.9 mg/dL Specimen Blood CBC WITH DIFFERENTIAL (12/20/2016 7:14 AM)Only the most recent of5 resultswithin the time period is included. Specimen Whole Blood Narrative The following orders were created for panel order CBC WITH DIFFERENTIAL. Procedure Abnormality Status --------- ------ CBC (COMPLETE BLOOD COUNT)[[id number]] AbnormalFinal result DIFFERENTIAL[[id number]] AbnormalFinal result Please view results for these tests on the individual orders. BASIC METABOLIC PANEL W/ CALCIUM (CHEM 8) (12/20/2016 7:14 AM)Only the most recent of5 resultswithin the time period is included. Component Value Range Sodium 139 135-145 mEq/L Potassium 4.2 3.5-5.0 mEq/L Chloride 103 95-107 mEq/L CO2 21(L) 22-29 mEq/L BUN 13 10-20 mg/dL Creatinine 1.1Comment: 0.6-1.2 mg/dL Creatinine switched to enzymatic method on 12/12/2010.GFR equation switched to IDMS-traceable MDRD equation on 12/12/2010. Calculated GFR values are not valid in clinical settings where serum creatinine is changing. 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 No evidence of vegetation on prosthetic or [place] heart valves. No thrombus is detected in the left atrial appendage. No right to left shunt by saline contrast Patient Height (cm) 175.3 cm Patient Weight (kg) 113.4 kg Systolic Pressure (mmHg) 146 mmHg Diastolic Pressure (mmHg) 64 mmHg BSA (meters^2) 2.3 m^2 Left Ventricle (LV) Probably enlarged left ventricular chamber size. Normal LV wall thickness. Normal left ventricular systolic function. LV Ejection Fraction=55-60% (based on visual estimate). No regional wall motion abnormalities noted. Right Ventricle (RV) Probably normal right ventricular size Probably normal right ventricular systolic function. Left and Right Atria (LA, RA) LA chamber size: enlarged. No thrombus is detected in the left atrial appendage. Enlarged right atrial size. The interatrial septum is intact with no evidence for an atrial septal defect. No interatrial shunt visualized by color doppler No right to left shunt by saline contrast Mitral Valve (MV) Normal mitral valve leaflet morphology Mild mitral regurgitation by Doppler. Tricuspid Valve (TV) Normal tricuspid valve morphology There are no mobile echodensities seen on the TV to support endocarditis. No significant tricuspid regurgitation by color doppler Aortic Valve (AoV) There is a bioprosthetic aortic valve. Bioprosthetic leaflets are thin and move normally. 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 Trace aortic insufficiency Pulmonic Valve (PV) Probably normal pulmonic valve No pulmonic valvular regurgitation by doppler Aorta and Pulmonary Artery (Ao, PA) The aortic root is normal size. No descending aorta atherosclerotic plaques noted Pericardium/Pleura There is no pericardial effusion. Procedures Color Flow ([id number]) KANDIS ([id number]) Saline bubble study ([id number]) Informed consent was obtained after thorough explanation of the procedure, risks and benefits, with time allowed for the patient or patient junior sales representative's concerns and questions Pre-procedure ASA Category III PreProcedure GL=964/66 mmHg. PreProcedure HR=64 bpm Pre Procedure O2 Sat=94 %. Pre Procedure RR=20 per min. Height=69 in . Wsoext=003 in . BSA=2.35 m^2. KANDIS probe inserted proceeded without difficulty or apparent complications. KANDIS scope number 006 utilized for this exam. Post Procedure OU=189/56 mmHg. Post Procedure HR=63 bpm Post Procedure O2 Sat=97 %. Post Procedure RR=16 per min. Versed 3mg IV Fentanyl 50mcg IV Patient recovery: Patient recovered and dismissed in stable condition I was present for the entire procedure I was present for the bucio portions of the procedure defined as conscious sedation, KANDIS probe insertion, Echo imaging, Probe removal, and patient recovery Inf. Vena Cava (IVC) / Pulm. Veins The following pulmonary veins were noted in normal position: 'all 4 pulmonary veins' . 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 Component Value Range CRP (C-Reactive Protein) 3.1(H) <=0.5 mg/dL Specimen Blood ECG - EKG 12 LEAD (12/16/2016 8:21 AM) Component Value Range ECG SEVERITY - BORDERLINE ECG - VENT. RATE 64 bpm RR 938 ms P-R INTERVAL 208 ms QRSD INTERVAL 94 ms QT INTERVAL 392 ms QTC INTERVAL 405 ms P AXIS -9 degrees QRS AXIS 28 degrees T WAVE AXIS 53 degrees REPORT SINUS RHYTHM BORDERLINE INFERIOR Q WAVES Interpreting Physician: Tony Horton MD EXTERNAL CT - STORE ONLY (12/16/2016 7:49 AM)MRI BRAIN W/WO CONTRAST ([id number]) ( 12/16/2016 4:08 AM) Impressions Impression: 1. Right EMBALMER/FUNERAL DIRECTOR distribution acute infarct. 2. Minimal flow/ signal in the right EMBALMER/FUNERAL DIRECTOR P2 segment and beyond. 3. Scattered tiny foci of stability artifact thought to reflect hypertensive microbleeds. 4. 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 Results of the procedure were given to: PERSON CONTACTED:Katarzyna DATE: 12/16/2016 TIME CALLED:520 PHONE/PAGER:[phone] This final report is in agreement with the critical and emergent preliminary findings reported by the interventional radiology technologist tester semiconductor packages. Narrative Procedure: MRI BRAIN W/WO CONTRAST ([id number]), MRI ORBIT W/WO CONTRAST ([id number]), MRA HEAD AND NECK W/WO CONTRAST ([id number], [id number]) Indication: CVA/progressive blindness Technique: 1. Multisequence, multiplanar MRI of the brain before and after the uneventful administration of 11 mL GadavistIV contrast. 2. Multisequence, multiplanar MRA of the neck before and after the uneventful administration of 11 mL GadavistIV contrast. Source and MIP images were obtained and reviewed. 3D images were processed on a separate workstation. 3. Multisequence, multiplanar MRA of the head before and after the uneventful administration of 11 mL GadavistIV contrast. Source and MIP images were obtained and reviewed. 3D images were processed on a separate workstation. 4. Multisequence, multiplanar MRI of the orbits before and after the uneventful administration of 11 mL Gadavist IV contrast. Comparison: None Findings: - MRI Brain: Large region of restricted diffusion with associated high T2/FLAIR signal in the right occipitotemporal region. Punctate focus of GRE/SWI blooming may represent microhemorrhage or thrombus. Scattered foci of high T2/FLAIR signal in the periventricular white matter consistent with chronic ischemic small vessel disease. There is no acute infarct, intracranial mass, or intra or extra-axial hemorrhage. No suspicious lesions or areas of abnormal enhancement. The ventricles, cortical sulci and basal cisterns are symmetric and appropriate. Normal brainstem and posterior fossa. The pituitary and suprasellar region are unremarkable. Major intracranial flow-voids are preserved. The paranasal sinuses are clear. Fluid present in the left mastoid air cells. Normal bone marrow signal. - MRI Orbit: The optic nerves are normal bilaterally. The extraocular muscles, globes, and orbits appear normal. The cavernous sinuses and superior ophthalmic veins are normal. There is normal signal intensity in the visualized portions of the paranasal sinuses. - MRA Neck: There is classic aortic branching without significant ostial stenosis. There is normal course and caliber of the common carotid arteries. Internal and external carotid arteries are within normal limits. The vertebral arteries originate from the subclavian arteries without significant ostial stenosis. There is normal course and caliber of the right vertebral artery. The left vertebral artery is hypoplastic. - MRA Head: The distal internal carotid arteries are unremarkable. Normal distal right vertebral and basilar arteries. The left vertebral artery terminates in PICA. There is no significant stenosis in the anterior, middle or posterior cerebral arteries. No evidence of aneurysm or malformation. 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 Minimal flow in the posterior right P2 and beyond. Hypoplastic right P1. - Extravascular Findings: Grossly normal thyroid and paravertebral soft tissues. Procedure Note Saw, Incoming Imaging Results - [place] December 16, 2016 10:43 AM CDT Procedure: MRI BRAIN W/WO CONTRAST ([id number]), MRI ORBIT W/WO CONTRAST ([id number]), MRA HEAD AND NECK W/WO CONTRAST ([id number], [id number]) Indication: CVA/progressive blindness Technique: 1. Multisequence, multiplanar MRI of the brain before and after the uneventful administration of 11 mL Gadavist IV contrast. 2. Multisequence, multiplanar MRA of the neck before and after the uneventful administration of 11 mL Gadavist IV contrast. Source and MIP images were obtained and reviewed. 3D images were processed on a separate workstation. 3. Multisequence, multiplanar MRA of the head before and after the uneventful administration of 11 mL Gadavist IV contrast. Source and MIP images were obtained and reviewed. 3D images were processed on a separate workstation. 4. Multisequence, multiplanar MRI of the orbits before and after the uneventful administration of 11 mL Gadavist IV contrast. Comparison: None Findings: - MRI Brain: Large region of restricted diffusion with associated high T2/FLAIR signal in the right occipitotemporal region. Punctate focus of GRE/SWI blooming may represent microhemorrhage or thrombus. Scattered foci of high T2/FLAIR signal in the periventricular white matter consistent with chronic ischemic small vessel disease. There is no acute infarct, intracranial mass, or intra or extra-axial hemorrhage. No suspicious lesions or areas of abnormal enhancement. The ventricles, cortical sulci and basal cisterns are symmetric and appropriate. Normal brainstem and posterior fossa. The pituitary and suprasellar region are unremarkable. Major intracranial flow-voids are preserved. The paranasal sinuses are clear. Fluid present in the left mastoid air cells. Normal bone marrow signal. - MRI Orbit: The optic nerves are normal bilaterally. The extraocular muscles, globes, and orbits appear normal. The cavernous sinuses and superior ophthalmic veins are normal. There is normal signal intensity in the visualized portions of the paranasal sinuses. - MRA Neck: There is classic aortic branching without significant ostial stenosis. There is normal course and caliber of the common carotid arteries. Internal and external carotid arteries are within normal limits. The vertebral arteries originate from the subclavian arteries without significant ostial stenosis. There is normal course and caliber of the right vertebral artery. The left vertebral artery is hypoplastic. - MRA Head: The distal internal carotid arteries are unremarkable. Normal distal right vertebral and basilar arteries. The left vertebral artery terminates in PICA. There is no significant stenosis in the anterior, middle or posterior cerebral arteries. No evidence of aneurysm or malformation. 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 Minimal flow in the posterior right P2 and beyond. Hypoplastic right P1. - Extravascular Findings: Grossly normal thyroid and paravertebral soft tissues. IMPRESSION Impression: 1. Right EMBALMER/FUNERAL DIRECTOR distribution acute infarct. 2. Minimal flow/ signal in the right EMBALMER/FUNERAL DIRECTOR P2 segment and beyond. 3. Scattered tiny foci of stability artifact thought to reflect hypertensive microbleeds. 4. 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 Results of the procedure were given to: PERSON CONTACTED: Xcedexicher DATE: 12/16/2016 TIME CALLED: [phone] PHONE/PAGER: [phone] This final report is in agreement with the critical and emergent preliminary findings reported by the interventional radiology technologist tester semiconductor packages. MRI ORBIT W/WO CONTRAST ([id number]) (12/16/2016 4:06 AM) Impressions Impression: 1. Right EMBALMER/FUNERAL DIRECTOR distribution acute infarct. 2. Minimal flow/ signal in the right EMBALMER/FUNERAL DIRECTOR P2 segment and beyond. 3. Scattered tiny foci of stability artifact thought to reflect hypertensive microbleeds. 4. 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 Results of the procedure were given to: PERSON CONTACTED:[email or web address] DATE: 12/16/2016 TIME CALLED:[phone] PHONE/PAGER:[phone] This final report is in agreement with the critical and emergent preliminary findings reported by the interventional radiology technologist tester semiconductor packages. Narrative Procedure: MRI BRAIN W/WO CONTRAST ([id number]), MRI ORBIT W/WO CONTRAST ([id number]), MRA HEAD AND NECK W/WO CONTRAST ([id number], [id number]) Indication: CVA/progressive blindness Technique: 1. Multisequence, multiplanar MRI of the brain before and after the uneventful administration of 11 mL GadavistIV contrast. 2. Multisequence, multiplanar MRA of the neck before and after the uneventful administration of 11 mL GadavistIV contrast. Source and MIP images were obtained and reviewed. 3D images were processed on a separate workstation. 3. Multisequence, multiplanar MRA of the head before and after the uneventful administration of 11 mL GadavistIV contrast. Source and MIP images were obtained and reviewed. 3D images were processed on a separate workstation. 4. Multisequence, multiplanar MRI of the orbits before and after the uneventful administration of 11 mL Gadavist IV contrast. Comparison: None Findings: - MRI Brain: Large region of restricted diffusion with associated high T2/FLAIR signal in the right occipitotemporal region. Punctate focus of GRE/SWI blooming may represent microhemorrhage or thrombus. Scattered foci of high T2/FLAIR signal in the periventricular white matter consistent with chronic ischemic small vessel disease. There is no acute infarct, intracranial mass, or intra or extra-axial hemorrhage. No suspicious lesions or areas of abnormal enhancement. The ventricles, cortical sulci and basal cisterns are symmetric and appropriate. Normal brainstem and posterior fossa. The pituitary and suprasellar region are unremarkable. Major intracranial flow-voids are preserved. The paranasal sinuses are clear. Fluid present in the left mastoid air cells. Normal bone marrow signal. - MRI Orbit: The optic nerves are normal bilaterally. The extraocular muscles, globes, and orbits appear normal. The cavernous sinuses and superior ophthalmic veins are normal. There is normal signal intensity in the visualized portions of the paranasal sinuses. - MRA Neck: There is classic aortic branching without significant ostial stenosis. There is normal course and caliber of the common carotid arteries. Internal and external carotid arteries are within normal limits. The vertebral arteries originate from the subclavian arteries without significant ostial stenosis. There is normal course and caliber of the right vertebral artery. The left vertebral artery is hypoplastic. - MRA Head: The distal internal carotid arteries are unremarkable. Normal distal right vertebral and basilar arteries. The left vertebral artery terminates in PICA. There is no significant stenosis in the anterior, middle or posterior cerebral arteries. No evidence of aneurysm or malformation. 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 Minimal flow in the posterior right P2 and beyond. Hypoplastic right P1. - Extravascular Findings: Grossly normal thyroid and paravertebral soft tissues. Procedure Note Saw, Incoming Imaging Results - [place] December 16, 2016 10:43 AM CDT Procedure: MRI BRAIN W/WO CONTRAST ([id number]), MRI ORBIT W/WO CONTRAST ([id number]), MRA HEAD AND NECK W/WO CONTRAST ([id number], [id number]) Indication: CVA/progressive blindness Technique: 1. Multisequence, multiplanar MRI of the brain before and after the uneventful administration of 11 mL Gadavist IV contrast. 2. Multisequence, multiplanar MRA of the neck before and after the uneventful administration of 11 mL Gadavist IV contrast. Source and MIP images were obtained and reviewed. 3D images were processed on a separate workstation. 3. Multisequence, multiplanar MRA of the head before and after the uneventful administration of 11 mL Gadavist IV contrast. Source and MIP images were obtained and reviewed. 3D images were processed on a separate workstation. 4. Multisequence, multiplanar MRI of the orbits before and after the uneventful administration of 11 mL Gadavist IV contrast. Comparison: None Findings: - MRI Brain: Large region of restricted diffusion with associated high T2/FLAIR signal in the right occipitotemporal region. Punctate focus of GRE/SWI blooming may represent microhemorrhage or thrombus. Scattered foci of high T2/FLAIR signal in the periventricular white matter consistent with chronic ischemic small vessel disease. There is no acute infarct, intracranial mass, or intra or extra-axial hemorrhage. No suspicious lesions or areas of abnormal enhancement. The ventricles, cortical sulci and basal cisterns are symmetric and appropriate. Normal brainstem and posterior fossa. The pituitary and suprasellar region are unremarkable. Major intracranial flow-voids are preserved. The paranasal sinuses are clear. Fluid present in the left mastoid air cells. Normal bone marrow signal. - MRI Orbit: The optic nerves are normal bilaterally. The extraocular muscles, globes, and orbits appear normal. The cavernous sinuses and superior ophthalmic veins are normal. There is normal signal intensity in the visualized portions of the paranasal sinuses. - MRA Neck: There is classic aortic branching without significant ostial stenosis. There is normal course and caliber of the common carotid arteries. Internal and external carotid arteries are within normal limits. The vertebral arteries originate from the subclavian arteries without significant ostial stenosis. There is normal course and caliber of the right vertebral artery. The left vertebral artery is hypoplastic. - MRA Head: The distal internal carotid arteries are unremarkable. Normal distal right vertebral and basilar arteries. The left vertebral artery terminates in PICA. There is no significant stenosis in the anterior, middle or posterior cerebral arteries. No evidence of aneurysm or malformation. 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 Minimal flow in the posterior right P2 and beyond. Hypoplastic right P1. - Extravascular Findings: Grossly normal thyroid and paravertebral soft tissues. IMPRESSION Impression: 1. Right EMBALMER/FUNERAL DIRECTOR distribution acute infarct. 2. Minimal flow/ signal in the right EMBALMER/FUNERAL DIRECTOR P2 segment and beyond. 3. Scattered tiny foci of stability artifact thought to reflect hypertensive microbleeds. 4. 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 Results of the procedure were given to: PERSON CONTACTED: [email or web address] DATE: 12/16/2016 TIME CALLED: [phone] PHONE/PAGER: [phone] This final report is in agreement with the critical and emergent preliminary findings reported by the interventional radiology technologist tester semiconductor packages. MRA HEAD AND NECK W/WO CONTRAST ([id number], [id number]) (12/16/2016 4:06 AM) Impressions Impression: 1. Right EMBALMER/FUNERAL DIRECTOR distribution acute infarct. 2. Minimal flow/ signal in the right EMBALMER/FUNERAL DIRECTOR P2 segment and beyond. 3. Scattered tiny foci of stability artifact thought to reflect hypertensive microbleeds. 4. 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 Results of the procedure were given to: PERSON CONTACTED:[email or web address] DATE: 12/16/2016 TIME CALLED:[phone] PHONE/PAGER:[phone] This final report is in agreement with the critical and emergent preliminary findings reported by the interventional radiology technologist tester semiconductor packages. Narrative Procedure: MRI BRAIN W/WO CONTRAST ([id number]), MRI ORBIT W/WO CONTRAST ([id number]), MRA HEAD AND NECK W/WO CONTRAST ([id number], [id number]) Indication: CVA/progressive blindness Technique: 1. Multisequence, multiplanar MRI of the brain before and after the uneventful administration of 11 mL GadavistIV contrast. 2. Multisequence, multiplanar MRA of the neck before and after the uneventful administration of 11 mL GadavistIV contrast. Source and MIP images were obtained and reviewed. 3D images were processed on a separate workstation. 3. Multisequence, multiplanar MRA of the head before and after the uneventful administration of 11 mL GadavistIV contrast. Source and MIP images were obtained and reviewed. 3D images were processed on a separate workstation. 4. Multisequence, multiplanar MRI of the orbits before and after the uneventful administration of 11 mL Gadavist IV contrast. Comparison: None Findings: - MRI Brain: Large region of restricted diffusion with associated high T2/FLAIR signal in the right occipitotemporal region. Punctate focus of GRE/SWI blooming may represent microhemorrhage or thrombus. Scattered foci of high T2/FLAIR signal in the periventricular white matter consistent with chronic ischemic small vessel disease. There is no acute infarct, intracranial mass, or intra or extra-axial hemorrhage. No suspicious lesions or areas of abnormal enhancement. The ventricles, cortical sulci and basal cisterns are symmetric and appropriate. Normal brainstem and posterior fossa. The pituitary and suprasellar region are unremarkable. Major intracranial flow-voids are preserved. The paranasal sinuses are clear. Fluid present in the left mastoid air cells. Normal bone marrow signal. - MRI Orbit: The optic nerves are normal bilaterally. The extraocular muscles, globes, and orbits appear normal. The cavernous sinuses and superior ophthalmic veins are normal. There is normal signal intensity in the visualized portions of the paranasal sinuses. - MRA Neck: There is classic aortic branching without significant ostial stenosis. There is normal course and caliber of the common carotid arteries. Internal and external carotid arteries are within normal limits. The vertebral arteries originate from the subclavian arteries without significant ostial stenosis. There is normal course and caliber of the right vertebral artery. The left vertebral artery is hypoplastic. - MRA Head: The distal internal carotid arteries are unremarkable. Normal distal right vertebral and basilar arteries. The left vertebral artery terminates in PICA. There is no significant stenosis in the anterior, middle or posterior cerebral arteries. No evidence of aneurysm or malformation. 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 Minimal flow in the posterior right P2 and beyond. Hypoplastic right P1. - Extravascular Findings: Grossly normal thyroid and paravertebral soft tissues. Procedure Note Saw, Incoming Imaging Results - [place] December 16, 2016 10:43 AM CDT Procedure: MRI BRAIN W/WO CONTRAST ([id number]), MRI ORBIT W/WO CONTRAST ([id number]), MRA HEAD AND NECK W/WO CONTRAST ([id number], [id number]) Indication: CVA/progressive blindness Technique: 1. Multisequence, multiplanar MRI of the brain before and after the uneventful administration of 11 mL Gadavist IV contrast. 2. Multisequence, multiplanar MRA of the neck before and after the uneventful administration of 11 mL Gadavist IV contrast. Source and MIP images were obtained and reviewed. 3D images were processed on a separate workstation. 3. Multisequence, multiplanar MRA of the head before and after the uneventful administration of 11 mL Gadavist IV contrast. Source and MIP images were obtained and reviewed. 3D images were processed on a separate workstation. 4. Multisequence, multiplanar MRI of the orbits before and after the uneventful administration of 11 mL Gadavist IV contrast. Comparison: None Findings: - MRI Brain: Large region of restricted diffusion with associated high T2/FLAIR signal in the right occipitotemporal region. Punctate focus of GRE/SWI blooming may represent microhemorrhage or thrombus. Scattered foci of high T2/FLAIR signal in the periventricular white matter consistent with chronic ischemic small vessel disease. There is no acute infarct, intracranial mass, or intra or extra-axial hemorrhage. No suspicious lesions or areas of abnormal enhancement. The ventricles, cortical sulci and basal cisterns are symmetric and appropriate. Normal brainstem and posterior fossa. The pituitary and suprasellar region are unremarkable. Major intracranial flow-voids are preserved. The paranasal sinuses are clear. Fluid present in the left mastoid air cells. Normal bone marrow signal. - MRI Orbit: The optic nerves are normal bilaterally. The extraocular muscles, globes, and orbits appear normal. The cavernous sinuses and superior ophthalmic veins are normal. There is normal signal intensity in the visualized portions of the paranasal sinuses. - MRA Neck: There is classic aortic branching without significant ostial stenosis. There is normal course and caliber of the common carotid arteries. Internal and external carotid arteries are within normal limits. The vertebral arteries originate from the subclavian arteries without significant ostial stenosis. There is normal course and caliber of the right vertebral artery. The left vertebral artery is hypoplastic. - MRA Head: The distal internal carotid arteries are unremarkable. Normal distal right vertebral and basilar arteries. The left vertebral artery terminates in PICA. There is no significant stenosis in the anterior, middle or posterior cerebral arteries. No evidence of aneurysm or malformation. 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 Minimal flow in the posterior right P2 and beyond. Hypoplastic right P1. - Extravascular Findings: Grossly normal thyroid and paravertebral soft tissues. IMPRESSION Impression: 1. Right EMBALMER/FUNERAL DIRECTOR distribution acute infarct. 2. Minimal flow/ signal in the right EMBALMER/FUNERAL DIRECTOR P2 segment and beyond. 3. Scattered tiny foci of stability artifact thought to reflect hypertensive microbleeds. 4. 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 Results of the procedure were given to: PERSON CONTACTED: Katarzyna DATE: 12/16/2016 TIME CALLED: [phone] PHONE/PAGER: [phone] This final report is in agreement with the critical and emergent preliminary findings reported by the interventional radiology technologist tester semiconductor packages. IRON PANEL (IRON, TRANSFERRIN, TIBC AND % SATURATION) (12/16/2016 12:33 AM) Component Value Range Iron, Blood 18(L) 59-158 g/dL Transferrin 184(L) 200-360 mg/dL Iron % Saturation 7(L)Comment: 20-50 % Iron % saturation is a calculated parameter derived from the iron and transferrin plasma concentrations. Iron % saturation is not reliable when there are high ferritin concentrations greater than 1,200 ng/mL. TIBC (Total Iron Binding Capacity) 263Comment: 250-425 g/dL TIBC is a calculated parameter derived from the transferrin plasma concentration. Specimen Blood LIPID PANEL (12/16/2016 12:33 AM) Component Value Range Cholesterol 118Comment: mg/dL Reference Range: Less than 200 mg/dL - desirable 200 - 240 mg/dL - increased risk Above 240 mg/dL - significant risk Triglycerides 130Comment: 0-150 mg/dL Reference Ranges: Normal:<150 mg/dL Borderline-high:150-199 mg/dL High: 200-499 mg/dL Very high: > gs=002 mg/dL HDL Cholesterol 33(L) >=41 mg/dL LDL - Calculated 59 <=130 mg/dL Non-HDL Cholesterol (Calc) 85 mg/dL Specimen Blood HEPATIC FUNCTION PANEL (12/16/2016 12:33 AM) Component Value Range Albumin 3.3(L) 3.4-4.8 g/dL ALP 63 40-129 U/L Bilirubin Total 0.3 <=1.2 mg/dL Bilirubin, Direct <0.2 0.0-0.2 mg/dL AST 23Comment: 0-40 U/L Adult reference ranges updated on 06/30/13 at 830am ALT 16Comment: 0-41 U/L The upper limit of normal for alanine aminotransferase (ALT) reference ranges for adults is controversial with some authorities recommending limit as low as 30 U/L for males and 19 U/L for females. Th ere is increased incidence of subclinical liver disease (e.g., early steatohepatitis) in patients with ALT values in the range of 31-41 U/L for males and 20-33 U/L for females. ALT values should alway s be interpreted in conjunction with clinical history, physical examination findings, and, if applicable, data from other diagnostic tests. Total Protein 7.0 6.0-8.0 g/dL Specimen Blood TROPONIN T (12/16/2016 12:33 AM) Component Value Range Troponin-T <0.03 <=0.10 ng/mL Specimen Blood ERYTHROCYTE SEDIMENTATION RATE (12/16/2016 12:27 AM) Component Value Range ESR (Erythrocyte Sedimentation Rate) 62(H) 0-15 mm/Hr Specimen Whole Blood HEMOGLOBIN A1C (12/16/2016 12:27 AM) Component Value Range Hemoglobin A1c 8.0(H)Comment: 4.8-6.0 % Glycemic Control Guidelines: Non-diabetic <6% Goal <7% Therapeutic Action >8% Estimated Average Glucose 183Comment: mg/dL The estimated average glucose (eAG) calculated from the HbA1c changed on 24/03.See Laboratory Bulletins in the Department of Pathology Laboratory Services Handbook for a full discussion.Not e that the new calculated glucose will now be lower.The A1c result is unchanged. Specimen Whole Blood
[2017-01-17] MEDS ORDERED: NORMAL SALINE 1,000 ML IV ONE (11:05)
[2017-01-17 11:20] LABS: Hematocrit 36.3 % (42.0-52.0); Hemoglobin 12.2 gm/dL (13.5-18.0); Mean Cell Volume 85.8 fl (78-100); Mean Corpuscular Hemoglobin 28.8 pg (27-31); Mean Corpuscular Hgb Conc 33.6 g/dl (32-36); Mean Platelet Volume 11.5 fl (6.0-9.5); Neutrophil # 16.4 K/mm3 (1.3-6.0); Neutrophil % 87.7 % (42-75.0); Platelet Count 241 K/mm3 (150-450); Red Blood Count 4.23 M/mm3 (4.7-6.0); Red Cell Distribution Width 14.3 % (11.5-14.0); White Blood Count 18.7 K/mm3 (4.0-10.5)
[2017-01-17 11:22] LABS: Urine Bilirubin Negative (NEGATIVE); Urine Blood 250 /ul (NEGATIVE); Urine Ketone Negative (NEGATIVE); Urine Protein 15 mg/dL (NEGATIVE); Urine Urobilinogen Normal (NORMAL); Urine pH 5.5 pH (5.0-7.0)
[2017-01-17 11:29] LABS: Urine Appearance Cloudy; Urine Bacteria 2+; Urine Color Yellow; Urine Nitrite Positive (NEGATIVE); Urine RBC >50 /hpf (0-5); Urine WBC >50 /hpf (0-5)
[2017-01-17 11:34] LABS: Albumin * 2.9 gm/dl (3.4-5.0); Anion Gap 12.6 mmol/L (6.8-13.8); BUN/Creatinine Ratio 11.8 (9.0-21.6); Bilirubin, Total 0.7 mg/dL (0.0-1.1); Calcium * 9.4 mg/dL (7.9-10.9); Carbon Dioxide 32.6 mmol/L (24-32.6); Potassium 4.2 mmol/L (3.4-4.6); Total Protein 8.4 gm/dL (6.2-8.2)
--- OUTSIDE RECORDS SUMMARY | 2017-01-17 12:07 | XMS REPORT | Continuity of Care Document ---
:1945 Author Organization [facility] ([facility]) [place] [address] Phone [phone] Care Team Providers Name Role Phone Yakelin Rousseau Primary Care Provider [phone] Source Comments This disclosure is being made pursuant to the Care Everywhere program, applicable federal and state laws, and may not contain all informaitonavailable regarding this patient.[facility] ([facility]) Active Allergies and Adverse Reactions Allergen [...] 5 every evening. fluticasone 50 Use 1 [place] into Active mcg/Actuation nasal both nostrils 6 [...] based on glucose results.GLUCOSE LEVEL (mg/dl)150-199 give [id number] give 2 udzbz522-488 give 3 vopfe798-281 give4 nktde631-807 give 5 byggv340 or greater - Call Attending apixaban (ELIQUIS) [...] vial dinner. Active Problems Problem Noted Date LEARY (dyspnea [...] a #23 Magna pericardial bioprosthesis performed in [place] 01/13 CARDIOVASCULAR PROCEDURES ECHO/MUGA: Echo (Normal LV function. Normal bioprosthetic AoV) - 05/13/2012 Echo (Normal EF, Normal functioning AVR) - 07/01/2013 Adiposity 05/11/2014 Hypercholesterolemia without hypertriglyceridemia 10/13/2013 Most Recent Encounters Date Type Specialty Providers Description 12/21/2016 Telephone Presidential Support Specialist Qing Vance Chief Comp: [facility] [place]up 12/19/2016 Orders/Notes Neurology Christopher Colón MD 12/17/2016 [facility] Chief Comp: Patient Encounter MD Fermin Reported Reason For Visit 12/15/2016 - [facility] Dx: Adiposity 12/20/2016 Encounter Inpatient - Adult [...] Sangita Womack MD Chief Comp: Patient [address] [facility] [place] [address] Visit [phone] (Fax) 03/22/2017 Appointment Neurology Indiana Jarrett MD [address] [place] [address] [phone] (Fax) Chief Comp: Patient Anisha Guzmán, INDUSTRIAL TRACTOR DRIVER [address] [place] [address] [phone] (Fax) Reported Reason For Visit Health Maintenance [...] Neutrophils-Auto Diff 62.4 % Neutrophils-Auto Diff 6960 [id number] /MM3 % Lymphocytes-Auto Diff 25.2 % Lymphocytes-Auto [...] Abnormality Status --------- ------ CBC (COMPLETE BLOOD COUNT)[[id number]] AbnormalFinal result DIFFERENTIAL[[id number]] AbnormalFinal result Please view results for these [...] No evidence of vegetation on prosthetic or upper sioux heart valves. No thrombus is detected in [...] is no pericardial effusion. Procedures Color Flow ([id number]) KANDIS ([id number]) Saline bubble study ([id number]) Informed consent was obtained after thorough explanation of the procedure, risks and benefits, with time allowed for the patient or patient outside sales representative insurance's concerns and questions Pre-procedure ASA Category III PreProcedure UC=752/66 mmHg. PreProcedure HR=64 bpm Pre Procedure O2 Sat=94 %. Pre Procedure RR=20 per min. Height=69 in . Hqxjol=029 in . BSA=2.35 m^2. KANDIS probe inserted proceeded without difficulty or apparent complications. KANDIS scope number 006 utilized for this exam. Post Procedure AV=250/56 mmHg. Post Procedure HR=63 bpm Post Procedure [...] LVEF 55 High Range of LVEF 60 Jig Borer Jairo De León Interpreting Physician Max Umana [...] ONLY (12/16/2016 7:49 AM)MRI BRAIN W/WO CONTRAST ([id number]) ( 12/16/2016 4:08 AM) Impressions Impression: 1. Right MISSIONARY COORDINATOR distribution acute infarct. 2. Minimal flow/ signal in the right MISSIONARY COORDINATOR P2 segment and beyond. 3. Scattered tiny foci of stability artifact thought to reflect hypertensive microbleeds. 4. 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 Results of the procedure were given to: PERSON CONTACTED:Katarzyna DATE: 12/16/2016 TIME CALLED:[phone] PHONE/PAGER:[phone] This final report is in agreement with the critical and emergent preliminary findings reported by the vice president investor relations distribution field engineer. Narrative Procedure: MRI BRAIN W/WO CONTRAST ([id number]), MRI ORBIT W/WO CONTRAST ([id number]), MRA HEAD AND NECK W/WO CONTRAST ([id number], [id number]) Indication: CVA/progressive blindness Technique: 1. Multisequence, multiplanar [...] Procedure Note Saw, Incoming Imaging Results - [place] December 16, 2016 10:43 AM CDT Procedure: MRI BRAIN W/WO CONTRAST ([id number]), MRI ORBIT W/WO CONTRAST ([id number]), MRA HEAD AND NECK W/WO CONTRAST ([id number], [id number]) Indication: CVA/progressive blindness Technique: 1. Multisequence, multiplanar [...] paravertebral soft tissues. IMPRESSION Impression: 1. Right MISSIONARY COORDINATOR distribution acute infarct. 2. Minimal flow/ signal in the right MISSIONARY COORDINATOR P2 segment and beyond. 3. Scattered tiny foci of stability artifact thought to reflect hypertensive microbleeds. 4. 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 Results of the procedure were given to: PERSON CONTACTED: Aurora Feinticher DATE: 12/16/2016 TIME CALLED: [phone] PHONE/PAGER: [phone] This final report is in agreement with the critical and emergent preliminary findings reported by the vice president investor relations distribution field engineer. MRI ORBIT W/WO CONTRAST ([id number]) (12/16/2016 4:06 AM) Impressions Impression: 1. Right MISSIONARY COORDINATOR distribution acute infarct. 2. Minimal flow/ signal in the right MISSIONARY COORDINATOR P2 segment and beyond. 3. Scattered tiny foci of stability artifact thought to reflect hypertensive microbleeds. 4. 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 Results of the procedure were given to: PERSON CONTACTED:Aurora Feinticher DATE: 12/16/2016 TIME CALLED:[phone] PHONE/PAGER:[phone] This final report is in agreement with the critical and emergent preliminary findings reported by the vice president investor relations distribution field engineer. Narrative Procedure: MRI BRAIN W/WO CONTRAST ([id number]), MRI ORBIT W/WO CONTRAST ([id number]), MRA HEAD AND NECK W/WO CONTRAST ([id number], 86584) Indication: CVA/progressive blindness Technique: 1. Multisequence, multiplanar [...] Procedure Note Saw, Incoming Imaging Results - [place] December 16, 2016 10:43 AM CDT Procedure: MRI BRAIN W/WO CONTRAST ([id number]), MRI ORBIT W/WO CONTRAST ([id number]), MRA HEAD AND NECK W/WO CONTRAST ([id number], 32050) Indication: CVA/progressive blindness Technique: 1. Multisequence, multiplanar [...] paravertebral soft tissues. IMPRESSION Impression: 1. Right MISSIONARY COORDINATOR distribution acute infarct. 2. Minimal flow/ signal in the right MISSIONARY COORDINATOR P2 segment and beyond. 3. Scattered tiny foci of stability artifact thought to reflect hypertensive microbleeds. 4. 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 Results of the procedure were given to: PERSON CONTACTED: Razient DATE: 12/16/2016 TIME CALLED: [phone] PHONE/PAGER: [phone] This final report is in agreement with the critical and emergent preliminary findings reported by the vice president investor relations distribution field engineer. MRA HEAD AND NECK W/WO CONTRAST ([id number], [id number]) (12/16/2016 4:06 AM) Impressions Impression: 1. Right MISSIONARY COORDINATOR distribution acute infarct. 2. Minimal flow/ signal in the right MISSIONARY COORDINATOR P2 segment and beyond. 3. Scattered tiny foci of stability artifact thought to reflect hypertensive microbleeds. 4. 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 Results of the procedure were given to: PERSON CONTACTED:Hooja DATE: 12/16/2016 TIME CALLED:229 PHONE/PAGER:[phone] This final report is in agreement with the critical and emergent preliminary findings reported by the vice president investor relations distribution field engineer. Narrative Procedure: MRI BRAIN W/WO CONTRAST ([id number]), MRI ORBIT W/WO CONTRAST ([id number]), MRA HEAD AND NECK W/WO CONTRAST (81430, 04703) Indication: CVA/progressive blindness Technique: 1. Multisequence, multiplanar [...] Procedure Note Saw, Incoming Imaging Results - [place] December 16, 2016 10:43 AM CDT Procedure: MRI BRAIN W/WO CONTRAST ([id number]), MRI ORBIT W/WO CONTRAST ([id number]), MRA HEAD AND NECK W/WO CONTRAST ([id number], [id number]) Indication: CVA/progressive blindness Technique: 1. Multisequence, multiplanar [...] paravertebral soft tissues. IMPRESSION Impression: 1. Right MISSIONARY COORDINATOR distribution acute infarct. 2. Minimal flow/ signal in the right MISSIONARY COORDINATOR P2 segment and beyond. 3. Scattered tiny foci of stability artifact thought to reflect hypertensive microbleeds. 4. 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 Results of the procedure were given to: PERSON CONTACTED: Katarzyna DATE: 12/16/2016 TIME CALLED: [phone] PHONE/PAGER: [phone] This final report is in agreement with the critical and emergent preliminary findings reported by the vice president investor relations distribution field engineer. IRON PANEL (IRON, TRANSFERRIN, TIBC AND % [...] mg/dL High: 200-499 mg/dL Very high: > xk=413 mg/dL HDL Cholesterol 33(L) >=41 mg/dL LDL [...]
--- NOTE | 2017-01-17 12:12 | ERNOTE ---
ER Male HPI Date of Service: 01/17/17 Stated Complaint: ILL ER Male: other - fever Time Seen by Provider: 01/17/17 10:51 Source: patient Exam Limitations: no limitations Immunizations: IMMUNIZATION HX Immunizations Up to Date Yes History of Influenza Vaccine No Hx Pneumococcal Vaccination No Allergies/Adverse Reactions: Allergies hydrocodone bitartrate [From Vicodin] Allergy (Verified 01/17/17 11:06) Home Medications: HOME MEDICATIONS Atorvastatin Calcium [Lipitor] 40 mg PO DAILY 02/24/15 [Last Taken 12/14/16] Carvedilol [Coreg] 12.5 mg PO BID 02/24/15 [Last Taken 12/14/16] Insul NPH Hu Rec/Ins Rg Hu Rec [Novolin 70/30] 80 units SC BID 02/24/15 [Last Taken 12/14/16] Levothyroxine Sodium [Synthroid] 100 mcg PO DAILY 02/24/15 [Last Taken 12/14/16] Lisinopril [Zestril] 10 mg PO BID 02/24/15 [Last Taken 12/14/16] Potassium Chloride [Klor-Con 10] 10 meq PO DAILY 02/24/15 [Last Taken 12/14/16] metFORMIN HCL [Glucophage] 1,000 mg PO BIDWM 02/24/15 [Last Taken 12/14/16] traMADol HCL [Ultram] 50 mg PO Q8H PRN 05/21/15 [Last Taken Unknown] Aspirin [Aspir-Low] 81 mg PO DAILY 12/14/16 [Last Taken 12/14/16] Furosemide [Lasix] 40 mg PO DAILY 12/14/16 [Last Taken 12/14/16] Omeprazole 40 mg PO DAILY 12/14/16 [Last Taken 12/14/16] Wheat Dextrin [Benefiber] 1 each PO DAILY 12/14/16 [Last Taken 12/14/16] - History of Present Illness Narrative: Patient presents to the ED for fever. He was transferred in by ambulance with UTI and elevated WBC and fever 101.6 this am. Patient previded limited history. he denies any pain at this time. He states he legs were aching earlier. No CP or SOB. No abdominal pain. Nothing makes this better or worse. He had shaking chills earlier. Timing: Present: constant Onset Location: Present: other - no abdominal pain Activities at Onset: Present: none Modifying Factors - (Improves): Present: other - tylenol improved fever Modifying Factors - (Worsens): Present: other - nothing Associated Symptoms: Absent: fever/chills, vomiting Prior Treatment: Absent: recently hospitalized Review of Systems - Narrative Narrative: ROS limited by patient condition. - Review of Systems Constitutional: Absent: fever Respiratory: Absent: shortness of breath Cardiology: Absent: chest pain Gastrointestinal/Abdominal: Absent: abdominal pain Genitourinary: Present: other - UTI already noted pending culture - Patient's Past Medical History Patient History - Medical: Arthritis, Diabetes Type 2, Hypothyroidism, Obesity Patient History - Cardiac/Respiratory: Coronary Heart Disease, Hypertension, Hyperlipidemia, CPAP/BiPAP Home Use, Sleep Apnea, Other Patient History - Cancer: No Hx of Cancer Patient History - Surgical Procedures: Coronary Bypass Surgery, Orthopedic Patient History - Other: None - Family History Mother Family History - Medical: , Diabetes Type 1 Family History - Cardiac/Respiratory: No pertinent hx Family History - Cancer: No pertinent family hx Father Family History - Medical: , Diabetes Type 1 Family History - Cardiac/Respiratory: CVA/Stroke Family History - Cancer: No pertinent family hx Sister Family History - Medical: Family History - Cardiac/Respiratory: No pertinent hx Family History - Cancer: History Unknown - Social History Living Situations: home Abuse History: No History of abuse Psych History: Hx of Anxiety Does anyone smoke in the home?: No Alcohol Use: none Drug Use: none - Immunizations Immunizations Up to Date: Yes Hx Pneumococcal Vaccination: No History of Influenza Vaccine: No Physical Exam - Physical Exam General Appearance: Present: alert, no apparent distress Eye Exam: Normal inspection: bilateral, PERRL: bilateral Ears, Nose, Throat: Present: dry mucous membranes Neck: Present: normal inspection Respiratory: Present: no respiratory distress, no accessory muscle use, lungs clear Cardiovascular/Chest: Present: tachycardia Gastrointestinal/Abdominal: Present: normal bowel sounds, nontender, soft Back Exam: Absent: CVA tenderness (R), CVA tenderness (L) Extremity Exam: Present: other - cast left LE Neurological Exam: Present: alert, other - generalized weakness, no clear acute unilateral focal weakness Skin Exam: Present: other - redness right anterior girard, this looks chronic and does not appear to be an acute cellulitis ED Progress - Results and Orders Patient's Lab Results:: I have reviewed the patient's lab results. - Vital Signs Patient's Vital Signs:: I have reviewed the patient's vital signs. - Si Vital Signs: Vital Signs 01/17/17 01/17/17 10:51 11:34 Temperature 37.6 C H Pulse Rate 100 103 H Respiratory 19 17 Rate Blood Pressure 147/53 O2 Sat by Pulse 96 100 Oximetry - EKG EKG read: Interp. by me EKG Comments: Sinus tachycardia, Non-specific changes, no STEMI - X-Ray X-Ray #1 X-Ray: chest Interpretation: Interp. by me X-ray Comments: No pneumonia, awaiting final CXR report. - Progress/Reassessment Chief Complaint: Genitourinary Problem Progress Note-Subjective: 01/17/17 12:10 IV fluids given, IV ABx given, Sepsis protocol initiated. D/W Dr Rousseau, will admit. Departure Clinical Impression: UTI (urinary tract infection), Sepsis - Departure Disposition: [facility] Condition: Fair
[2017-01-17] MEDS: NORMAL SALINE 1,000 ML IV SCH ×3 (14:38→17:15)
[2017-01-17] MEDS ORDERED: traMADol HCL 50 MG TABLET PO PRN (15:10)
[2017-01-17] MEDS ORDERED: FLUTICASONE PROPIONATE 120 SPRAY INHALER NS PRN (15:10)
[2017-01-17] MEDS ORDERED: MAGNESIUM HYDROXIDE 30 ML UDC PO PRN (15:10)
[2017-01-17] MEDS ORDERED: ALBUTEROL SULFATE 2.5 MG/3 ML VIAL.NEB IH PRN (15:10)
[2017-01-17] MEDS: ACETAMINOPHEN 325 MG TABLET PO PRN (15:38)
[2017-01-17] MEDS: SODIUM CHLORIDE IV PRN ×3 (15:42→22:53)
--- NOTE | 2017-01-17 16:06 | HP ---
Chief Complaint - Chief Complaint Date of Service: 01/17/17 Time of Service: 16:00 Chief Complaint: fever/chills History of Present Illness: Angelo Yañez, is a 70-year-old white male, with previous medical history of coronary artery disease, aortic stenosis, diabetes mellitus type 2, hypertension , gout, morbid obesity, obstructive sleep apnea, recent left ankle fusion, who was brought to the emergency room today because of fever and chills. The patient said that for the last few days he has been having fever and chills associated with urinary incontinence and increased frequency. He also has some discomfort when he urinates as per patient. He was sent to emergency room where he was found to have a urinary tract infection with a white blood cell count of 18.7, neutrophils of 87.7, lactic acid of 2.9. His chest x-ray showed left basilar atelectasis, scar versus early infiltrate. Patient was given IV Rocephin in the emergency room and blood cultures 2 were taken. He was then admitted or further management. - Patient's Past Medical History Patient History - Medical: Arthritis, Diabetes Type 2, Hypothyroidism, Obesity Patient History - Cardiac/Respiratory: Coronary Heart Disease, Hypertension, Hyperlipidemia, CPAP/BiPAP Home Use, Sleep Apnea, Other Patient History - Cancer: No Hx of Cancer Patient History - Surgical Procedures: Coronary Bypass Surgery, Orthopedic Patient History - Other: None - Family History Mother Family History - Medical: , Diabetes Type 1 Family History - Cardiac/Respiratory: No pertinent hx Family History - Cancer: No pertinent family hx Father Family History - Medical: , Diabetes Type 1 Family History - Cardiac/Respiratory: CVA/Stroke Family History - Cancer: No pertinent family hx Sister Family History - Medical: Family History - Cardiac/Respiratory: No pertinent hx Family History - Cancer: History Unknown - Social History Living Situations: other Abuse History: No History of abuse Psych History: Hx of Anxiety Does anyone smoke in the home?: No Smoking Status: Never smoker Have you smoked in the past 12 months: No Do you dip or chew tobacco: No Patient requests Smoking Cessation Consult: No Initiate information on Smoking Cessation: No Alcohol Use: none Drug Use: none - Immunizations Immunizations Up to Date: Yes Hx Pneumococcal Vaccination: No History of Influenza Vaccine: No Review Of Systems (GEN) - Review of Systems Generalized/Overall Review: Present: Chills, Fever EENTM: Present: No Symptoms Reported Respiratory: Absent: Cough, Shortness of Breath, Orthopnea Cardiac: Absent: Chest Pain, Edema, Palpitations Abdominal: Absent: Nausea, Vomiting Genitourinary: Present: Urgency, Frequency, Dysuria Musculoskeletal: Present: Joint Pain Immunizations: IMMUNIZATION HX Immunizations Up to Date Yes History of Influenza Vaccine No Hx Pneumococcal Vaccination No Allergies/Adverse Reactions: Allergies Allergy/AdvReac Type Severity Reaction Status Date / Time hydrocodone bitartrate Allergy Verified 01/17/17 14:02 [From Vicodin] Home Medications: HOME MEDICATIONS Atorvastatin Calcium [Lipitor] 80 mg PO DAILY 02/24/15 [Last Taken 12/14/16] Levothyroxine Sodium [Synthroid] 100 mcg PO DAILY 02/24/15 [Last Taken 12/14/16] Lisinopril [Zestril] 10 mg PO DAILY 02/24/15 [Last Taken 12/14/16] metFORMIN HCL [Glucophage] 500 mg PO BIDWM 02/24/15 [Last Taken 12/14/16] traMADol HCL [Ultram] 50 mg PO BID 05/21/15 [Last Taken Unknown] Aspirin [Aspir-Low] 81 mg PO DAILY 12/14/16 [Last Taken 12/14/16] Furosemide [Lasix] 40 mg PO DAILY 12/14/16 [Last Taken 12/14/16] Acetaminophen [Tylenol] 650 mg PO Q6H PRN 01/17/17 [Last Taken Unknown] Albuterol Sulfate [Ventolin Hfa] 1 puff IH DAILY PRN 01/17/17 [Last Taken Unknown] Apixaban [Eliquis] 5 mg PO BID 01/17/17 [Last Taken Unknown] Fluticasone Propionate [Flovent Diskus] 50 mcg NS DAILY PRN 01/17/17 [Last Taken Unknown] Gabapentin 100 mg PO TID 01/17/17 [Last Taken Unknown] Hydrocortisone [Hydrocortisone 1% Ointment] 1 appl TP BID 01/17/17 [Last Taken Unknown] Insulin Lispro [Humalog] 0 - 6 units SQ AC 01/17/17 [Last Taken Unknown] Insulin NPH Hum/Reg Insulin Hm [Humulin 70-30] 8 unit SC QPM 01/17/17 [Last Taken Unknown] Insulin NPH Hum/Reg Insulin Hm [Humulin 70-30] 30 unit SC QAM 01/17/17 [Last Taken Unknown] Latanoprost [Xalatan] 1 drop EACHEYE HS 01/17/17 [Last Taken Unknown] Magnesium Hydroxide [Milk of Magnesia] 30 ml PO DAILY PRN 01/17/17 [Last Taken Unknown] Metoprolol Tartrate [Lopressor] 25 mg PO BID 01/17/17 [Last Taken Unknown] Nystatin [Nystop] 1 appl TP BID 01/17/17 [Last Taken Unknown] Pantoprazole Sodium 40 mg PO DAILY 01/17/17 [Last Taken Unknown] Tamsulosin HCl [Flomax] 0.4 mg PO DAILY 01/17/17 [Last Taken Unknown] Wheat Dextrin [Benefiber] 1 each PO DAILY 01/17/17 [Last Taken Unknown] traMADol HCL [Ultram] 50 mg PO Q6H PRN 01/17/17 [Last Taken Unknown] Exam - Exam Vital Signs: Vital Signs - Last Taken Temp 37 C 01/17/17 13:34 Pulse 113 H 01/17/17 13:34 Resp 22 H 01/17/17 13:34 BP 150/75 01/17/17 13:34 Pulse Ox 97 01/17/17 13:34 Constitutional: Present: Alert, Oriented x3, Cooperative ENT Exam: Present: hearing grossly normal Eye Exam: bilateral eye: normal inspection, PERRL, EOMI Neck: Present: supple Back Exam: Present: no CVA tenderness Breasts: Present: Exam deferred Respiratory: Present: decreased breath sounds, No rales, No wheezing Cardiovascular/Chest: Present: regular rate, rhythm, no JVD, no murmur Abdomen: Present: Normal bowel sounds, soft, nontender, nondistended Extremity: Present: no calf tenderness, lower extremity edema, other - LLE sury Short leg cast, RLE- positive rash berhane anterior girard Diagnostic Studies: Abnormal Lab Results 01/17/17 Range/Units 14:50 Lactic Acid, Venous 3.1 H* (0.4-1.9) mmol/L Laboratory Results WBC 18.7 K/mm3 (4.0-10.5) H 01/17/17 11:10 RBC 4.23 M/mm3 (4.7-6.0) L 01/17/17 11:10 Hgb 12.2 gm/dL (13.5-18.0) L 01/17/17 11:10 Hct 36.3 % (42.0-52.0) L 01/17/17 11:10 MCV 85.8 fl (78-100) 01/17/17 11:10 MCH 28.8 pg (27-31) 01/17/17 11:10 MCHC 33.6 g/dl (32-36) 01/17/17 11:10 RDW 14.3 % (11.5-14.0) H 01/17/17 11:10 Plt Count 241 K/mm3 (150-450) 01/17/17 11:10 MPV 11.5 fl (6.0-9.5) H 01/17/17 11:10 Immature Gran % (Auto) 0.50 % (0.001-0.429) H 01/17/17 11:10 Immature Gran # (Auto) 0.09 K/mm3 (0.000-0.0310) H 01/17/17 11:10 Neutrophils % 87.7 % (42-75.0) H 01/17/17 11:10 Lymphocytes % 5.6 % (20-51) L 01/17/17 11:10 Monocytes % 5.9 % (0.0-9) 01/17/17 11:10 Eosinophils % 0.1 % (0.0-3.0) 01/17/17 11:10 Basophils % 0.2 % (0.0-1.0) 01/17/17 11:10 Nucleated RBC % 0.0 k/mm3 (0-1) 01/17/17 11:10 Neutrophils # 16.4 K/mm3 (1.3-6.0) H 01/17/17 11:10 Lymphocytes # 1.0 k/mm3 (1.5-3.5) L 01/17/17 11:10 Monocytes # 1.1 k/mm3 (0.0-1.0) H 01/17/17 11:10 Eosinophils # 0.0 k/mm3 (0.0-0.7) 01/17/17 11:10 Absolute Basophils 0.0 k/mm3 (0.0-0.1) 01/17/17 11:10 Sodium 134 mmol/L (132-142) 01/17/17 11:10 Plasma Sodium 136 mmol/L (130-142) 01/17/17 11:10 Potassium 4.2 mmol/L (3.4-4.6) 01/17/17 11:10 Chloride 93 mmol/L (97-106) L 01/17/17 11:10 Carbon Dioxide 32.6 mmol/L (24-32.6) 01/17/17 11:10 Anion Gap 12.6 mmol/L (6.8-13.8) 01/17/17 11:10 BUN 16 mg/dL (6-23) 01/17/17 11:10 Creatinine 1.36 mg/dL (0.4-1.4) 01/17/17 11:10 Est GFR (Non-Af Amer) 55 mL/min (60-130) L 01/17/17 11:10 BUN/Creatinine Ratio 11.8 (9.0-21.6) 01/17/17 11:10 Random Glucose 218 mg/dL (70-110) H 01/17/17 11:10 Lactic Acid, Venous 3.1 mmol/L (0.4-1.9) H* 01/17/17 14:50 Calcium 9.4 mg/dL (7.9-10.9) 01/17/17 11:10 Calcium Adj for Albumin 10.0 mg/dL (8.4-10.2) 01/17/17 11:10 Total Bilirubin 0.7 mg/dL (0.0-1.1) 01/17/17 11:10 AST 18 U/L (0-48) 01/17/17 11:10 ALT 19 U/L (19-67) 01/17/17 11:10 Alkaline Phosphatase 87 U/L (50-170) 01/17/17 11:10 Total Protein 8.4 gm/dL (6.2-8.2) H 01/17/17 11:10 Albumin 2.9 gm/dl (3.4-5.0) L 01/17/17 11:10 Urine Color Yellow 01/17/17 11:10 Urine Appearance Cloudy 01/17/17 11:10 Urine pH 5.5 pH (5.0-7.0) 01/17/17 11:10 Ur Specific [place] 1.010 SP.GR. (1.005-1.030) 01/17/17 11:10 Urine Protein 15 mg/dL (NEGATIVE) H 01/17/17 11:10 Urine Glucose (UA) Negative mg/dL (NEGATIVE) 01/17/17 11:10 Urine Ketones Negative mg/dL (NEGATIVE) 01/17/17 11:10 Urine Blood 250 /ul (NEGATIVE) H 01/17/17 11:10 Urine Nitrate Positive (NEGATIVE) H 01/17/17 11:10 Urine Bilirubin Negative mg/dl (NEGATIVE) 01/17/17 11:10 Prot Sulfosalicylic Acd 1+ mg/dL (0) 01/17/17 11:10 Urine Urobilinogen Normal EU/dl (NORMAL) 01/17/17 11:10 Ur Leukocyte Esterase 100 /ul (NEGATIVE) H 01/17/17 11:10 Urine RBC >50 /hpf (0-5) H 01/17/17 11:10 Urine WBC >50 /hpf (0-5) H 01/17/17 11:10 Ur Epithelial Cells 0-5 /hpf (0-5) 01/17/17 11:10 Urine Bacteria 2+ (NONE) H 01/17/17 11:10 Urine Culture Comments Culture to follow 01/17/17 11:10 Assessment/Plan - Assessment/Plan (1) Sepsis Assessment: fulfills old defintion of sepsis . continue IV antibiotics and IVF. Problem: Acute Qualifiers: Sepsis type: sepsis due to unspecified organism Qualified Code(s): A41.9 - Sepsis, unspecified organism (2) Lactic acidosis Assessment: continue IV antibiotics and IVF. Problem: Acute (3) UTI (urinary tract infection) Assessment: r/o acute pyelonephritis. will get a MARTA. continue with IV antibiotics. Problem: Acute Qualifiers: Urinary tract infection type: acute cystitis Hematuria presence: with hematuria Qualified Code(s): N30.01 - Acute cystitis with hematuria (4) Diabetes mellitus Problem: Chronic Qualifiers: Diabetes mellitus type: type 2 Diabetes mellitus complication status: without complication (5) Hypertension Problem: Chronic Qualifiers: Hypertension type: essential hypertension Qualified Code(s): I10 - Essential (primary) hypertension (6) Hypothyroidism Problem: Chronic Qualifiers: Hypothyroidism type: acquired Qualified Code(s): E03.9 - Hypothyroidism, unspecified (7) Coronary artery disease Problem: Acute Qualifiers: Coronary Disease-Associated Artery/Lesion type: bypass graft, autologous vein Associated angina: without angina Qualified Code(s): I25.810 - Atherosclerosis of coronary artery bypass graft(s) without angina pectoris
[2017-01-17] MEDS: HUM INSULIN NPH/REG INSULIN HM 100 UNIT/ML VIAL SC SCH (17:11)
[2017-01-17] MEDS ORDERED: TAMSULOSIN HCL 0.4 MG CAP.SR.24H PO SCH (19:00)
[2017-01-17] MEDS: ROSUVASTATIN CALCIUM 10 MG TABLET PO SCH (20:11)
[2017-01-17] MEDS: GABAPENTIN 100 MG CAPSULE PO SCH (20:12)
[2017-01-17] MEDS: HYDROCORTISONE 30 APPL TUBE TP SCH (20:12)
[2017-01-17] MEDS: APIXABAN 2.5 MG TABLET PO SCH (20:12)
[2017-01-17] MEDS: METOPROLOL TARTRATE 25 MG TABLET PO SCH (20:12)
[2017-01-17] MEDS: LATANOPROST 25 DROP BTL EACHEYE SCH (20:13)
[2017-01-17] MEDS: NYSTATIN 15 APPL BTL TP SCH (20:13)
[2017-01-17] MEDS ORDERED: ACETAMINOPHEN 325 MG TABLET PO ONE (20:36)
[2017-01-18] MEDS: ACETAMINOPHEN 325 MG TABLET PO PRN ×2 (02:49→17:19)
[2017-01-18] MEDS: SODIUM CHLORIDE IV PRN ×3 (05:33→19:28)
[2017-01-18 07:37] LABS: Hematocrit 29.8 % (42.0-52.0); Hemoglobin 9.6 gm/dL (13.5-18.0); Mean Cell Volume 87.4 fl (78-100); Mean Corpuscular Hemoglobin 28.2 pg (27-31); Mean Corpuscular Hgb Conc 32.2 g/dl (32-36); Mean Platelet Volume 11.2 fl (6.0-9.5); Platelet Count 203 K/mm3 (150-450); Red Blood Count 3.41 M/mm3 (4.7-6.0); Red Cell Distribution Width 14.5 % (11.5-14.0); White Blood Count 20.7 K/mm3 (4.0-10.5)
[2017-01-18 07:45] LABS: Anion Gap 9.8 mmol/L (6.8-13.8); BUN/Creatinine Ratio 13.8 (9.0-21.6); Calcium * 8.1 mg/dL (7.9-10.9); Carbon Dioxide 28.9 mmol/L (24-32.6); Estimated Creat Clear 53.5; Potassium 3.7 mmol/L (3.4-4.6)
[2017-01-18] MEDS: PANTOPRAZOLE SODIUM 40 MG TABLET.EC PO SCH (07:46)
[2017-01-18] MEDS: LEVOTHYROXINE SODIUM 100 MCG TABLET PO SCH (07:47)
[2017-01-18] MEDS: GABAPENTIN 100 MG CAPSULE PO SCH ×3 (07:47→21:31)
[2017-01-18 07:48] LABS: Total Cells Counted 100
[2017-01-18] MEDS: HUM INSULIN NPH/REG INSULIN HM 100 UNIT/ML VIAL SC SCH ×2 (07:50→17:22)
[2017-01-18 07:56] LABS: Band 8 % (0-2.0); Lymphocyte 11 % (20-51); Monocyte 3 % (0-9); Neutrophil 78 % (42-75); Neutrophil # 16.1 K/mm3 (1.3-6.0); Platelet Estimate Normal (NORMAL); RBC Morphology Normal (NORMAL)
--- NOTE | 2017-01-18 08:13 | PN ---
Subjective - Date and Time Seen Date: 01/18/17 Time: 08:06 Subjective Narrative: Patient still with F/C, WBC higher today with bands, growing gram neg bacili in urine. Will admit to acute status. Objective - Review of Systems Generalized/Overall Review: Reports: Weakness, Chills, Fever EENTM: Reports: No Symptoms Reported Respiratory: Denies: Cough, Shortness of Breath, Orthopnea Cardiac: Denies: Chest Pain, Edema, Palpitations Abdominal: Denies: Nausea, Vomiting Genitourinary Symptoms: Reports: Urgency, Frequency, Dysuria Musculoskeletal Complaints: Reports: Joint Pain - Vitals Vitals: Last Vital Signs Temp 37.7 C H 01/18/17 03:54 Pulse 89 01/18/17 03:01 Resp 20 01/18/17 03:01 BP 123/36 01/18/17 02:06 Pulse Ox 99 01/18/17 03:01 - Abnormal Lab Findings Abnormal Lab Findings: Abnormal Lab Results 01/17/17 01/18/17 01/18/17 Range/Units 14:50 07:30 07:30 WBC 20.7 H (4.0-10.5) K/mm3 RBC 3.41 L (4.7-6.0) M/mm3 Hgb 9.6 L (13.5-18.0) gm/dL Hct 29.8 L (42.0-52.0) % RDW 14.5 H (11.5-14.0) % MPV 11.2 H (6.0-9.5) fl Neutrophils % (Manual) 78 H (42-75) % Band Neuts % (Manual) 8 H (0-2.0) % Lymphocytes % (Manual) 11 L (20-51) % Neutrophils # (Manual) 16.1 H (1.3-6.0) K/mm3 Random Glucose 206 H (70-110) mg/dL Lactic Acid, Venous 3.1 H* (0.4-1.9) mmol/L - Exam Constitutional: Present: Alert, Oriented x3, Cooperative ENT Exam: Present: hearing grossly normal Neck: Present: supple Breasts: Present: Exam deferred Respiratory: Present: decreased breath sounds, No rales, No wheezing Cardiovascular/Chest: Present: regular rate, rhythm, no JVD, no murmur Abdomen: Present: Normal bowel sounds, soft, nontender, nondistended Extremity: Present: no calf tenderness, pedal edema Assessment/Plan - Problems/Diagnosis (1) Sepsis Problem: Acute Qualifiers: Sepsis type: sepsis due to unspecified organism Qualified Code(s): A41.9 - Sepsis, unspecified organism (2) Lactic acidosis Problem: Acute Narrative: will do a follow up . (3) UTI (urinary tract infection) Problem: Acute Qualifiers: Urinary tract infection type: acute cystitis Hematuria presence: with hematuria Qualified Code(s): N30.01 - Acute cystitis with hematuria Narrative: Gram negative bacilli on UCS (4) Diabetes mellitus Problem: Chronic Qualifiers: Diabetes mellitus type: type 2 Diabetes mellitus complication status: without complication (5) Hypertension Problem: Chronic Qualifiers: Hypertension type: essential hypertension Qualified Code(s): I10 - Essential (primary) hypertension (6) Hypothyroidism Problem: Chronic Qualifiers: Hypothyroidism type: acquired Qualified Code(s): E03.9 - Hypothyroidism, unspecified (7) Coronary artery disease Problem: Acute Qualifiers: Coronary Disease-Associated Artery/Lesion type: bypass graft, autologous vein Associated angina: without angina Qualified Code(s): I25.810 - Atherosclerosis of coronary artery bypass graft(s) without angina pectoris (8) Depression Problem: Acute Qualifiers: Depression Type: unspecified Qualified Code(s): F32.9 - Major depressive disorder, single episode, unspecified Narrative: noticed patient to easliy cry. when asked if he is depressed- he says I don't know. recent CVA. will start patient on Lexapro.
[2017-01-18] MEDS: METOPROLOL TARTRATE 25 MG TABLET PO SCH ×2 (10:05→21:30)
[2017-01-18] MEDS: APIXABAN 2.5 MG TABLET PO SCH ×2 (10:05→21:28)
[2017-01-18] MEDS: LISINOPRIL 10 MG TABLET PO SCH (10:05)
[2017-01-18] MEDS: ASPIRIN 81 MG TABLET.DR PO SCH (10:05)
[2017-01-18] MEDS: FUROSEMIDE 40 MG TABLET PO SCH (10:05)
[2017-01-18] MEDS: HYDROCORTISONE 30 APPL TUBE TP SCH ×2 (10:06→21:28)
[2017-01-18] MEDS: PSYLLIUM SEED 1 PACKET PACKET PO SCH (10:06)
[2017-01-18] MEDS: NYSTATIN 15 APPL BTL TP SCH ×2 (10:07→21:31)
[2017-01-18] MEDS ORDERED: ESCITALOPRAM OXALATE 10 MG TAB PO SCH (12:30)
[2017-01-18] MEDS: ROSUVASTATIN CALCIUM 10 MG TABLET PO SCH (21:28)
[2017-01-18] MEDS: LATANOPROST 25 DROP BTL EACHEYE SCH (21:31)
[2017-01-19] MEDS: ACETAMINOPHEN 325 MG TABLET PO PRN ×4 (00:28→21:57)
[2017-01-19] MEDS: SODIUM CHLORIDE IV PRN (01:37)
[2017-01-19] MEDS: GABAPENTIN 100 MG CAPSULE PO SCH ×3 (07:37→21:26)
[2017-01-19] MEDS: PANTOPRAZOLE SODIUM 40 MG TABLET.EC PO SCH (07:37)
[2017-01-19] MEDS: LEVOTHYROXINE SODIUM 100 MCG TABLET PO SCH (07:37)
[2017-01-19] MEDS: HUM INSULIN NPH/REG INSULIN HM 100 UNIT/ML VIAL SC SCH ×2 (07:39→17:24)
[2017-01-19 07:41] LABS: Hematocrit 29.1 % (42.0-52.0); Hemoglobin 9.5 gm/dL (13.5-18.0); Mean Cell Volume 85.6 fl (78-100); Mean Corpuscular Hemoglobin 27.9 pg (27-31); Mean Corpuscular Hgb Conc 32.6 g/dl (32-36); Mean Platelet Volume 11.2 fl (6.0-9.5); Neutrophil # 10.9 K/mm3 (1.3-6.0); Neutrophil % 85.6 % (42-75.0); Platelet Count 194 K/mm3 (150-450); Red Cell Distribution Width 14.3 % (11.5-14.0); White Blood Count 12.7 K/mm3 (4.0-10.5)
--- NOTE | 2017-01-19 08:05 | PN ---
Subjective - Date and Time Seen Date: 01/19/17 Time: 08:00 Subjective Narrative: Patient has no appetite. UCS growing E.Coli. Still febrile at times.Tmax 38.1. Objective - Review of Systems Generalized/Overall Review: Reports: Chills, Fever EENTM: Reports: No Symptoms Reported Respiratory: Denies: Cough, Shortness of Breath, Orthopnea Cardiac: Reports: Edema. Denies: Chest Pain, Palpitations Abdominal: Denies: Nausea, Vomiting Genitourinary Symptoms: Reports: Urgency. Denies: Burning, Frequency Musculoskeletal Complaints: Reports: Joint Pain - Vitals Vitals: Last Vital Signs Temp 38.1 C H 01/19/17 07:31 Pulse 82 01/19/17 06:00 Resp 16 01/19/17 06:00 BP 136/58 01/19/17 06:00 Pulse Ox 91 01/19/17 06:00 - Abnormal Lab Findings Abnormal Lab Findings: Abnormal Lab Results 01/19/17 Range/Units 07:40 WBC 12.7 H D (4.0-10.5) K/mm3 RBC 3.40 L (4.7-6.0) M/mm3 Hgb 9.5 L (13.5-18.0) gm/dL Hct 29.1 L (42.0-52.0) % RDW 14.3 H (11.5-14.0) % MPV 11.2 H (6.0-9.5) fl Immature Gran % (Auto) 0.70 H (0.001-0.429) % Immature Gran # (Auto) 0.09 H (0.000-0.0310) K/mm3 Neutrophils % 85.6 H (42-75.0) % Lymphocytes % 7.6 L (20-51) % Neutrophils # 10.9 H (1.3-6.0) K/mm3 Lymphocytes # 1.0 L (1.5-3.5) k/mm3 - Exam Constitutional: Present: Alert, Oriented x3, Cooperative ENT Exam: Present: hearing grossly normal Neck: Present: supple Breasts: Present: Exam deferred Respiratory: Present: decreased breath sounds, No rales, No wheezing Cardiovascular/Chest: Present: regular rate, rhythm, no JVD, no murmur Abdomen: Present: Normal bowel sounds, soft, nontender, obese Extremity: Present: no calf tenderness, pedal edema, other - rahs on anterior leg, lright, LLE in SLC Assessment/Plan - Problems/Diagnosis (1) Sepsis Problem: Resolved Qualifiers: Sepsis type: Escherichia coli Qualified Code(s): A41.51 - Sepsis due to Escherichia coli [E. coli] Narrative: continue with IV rocephin (2) Lactic acidosis Problem: Acute (3) UTI (urinary tract infection) Problem: Acute Qualifiers: Urinary tract infection type: acute cystitis Hematuria presence: with hematuria Qualified Code(s): N30.01 - Acute cystitis with hematuria Narrative: E.Coli. Continue with IV Rocephin. (4) Diabetes mellitus Problem: Chronic Qualifiers: Diabetes mellitus type: type 2 Diabetes mellitus complication status: without complication (5) Hypertension Problem: Chronic Qualifiers: Hypertension type: essential hypertension Qualified Code(s): I10 - Essential (primary) hypertension (6) Hypothyroidism Problem: Chronic Qualifiers: Hypothyroidism type: acquired Qualified Code(s): E03.9 - Hypothyroidism, unspecified (7) Coronary artery disease Problem: Acute Qualifiers: Coronary Disease-Associated Artery/Lesion type: bypass graft, autologous vein Associated angina: without angina Qualified Code(s): I25.810 - Atherosclerosis of coronary artery bypass graft(s) without angina pectoris (8) Depression Problem: Acute Qualifiers: Depression Type: unspecified Qualified Code(s): F32.9 - Major depressive disorder, single episode, unspecified Narrative: will change to remeron for its additional benefit of increased appetite.
[2017-01-19] MEDS: LISINOPRIL 10 MG TABLET PO SCH (08:36)
[2017-01-19] MEDS: APIXABAN 2.5 MG TABLET PO SCH ×2 (08:36→21:25)
[2017-01-19] MEDS: ASPIRIN 81 MG TABLET.DR PO SCH (08:36)
[2017-01-19] MEDS: FUROSEMIDE 40 MG TABLET PO SCH (08:36)
[2017-01-19] MEDS: METOPROLOL TARTRATE 25 MG TABLET PO SCH ×2 (08:36→21:26)
[2017-01-19] MEDS: HYDROCORTISONE 30 APPL TUBE TP SCH ×2 (08:36→21:26)
[2017-01-19] MEDS: NYSTATIN 15 APPL BTL TP SCH ×2 (08:36→21:26)
--- NOTE | 2017-01-19 12:12 | OR ---
Anesthesia Procedure Note - Anesthesia Procedure Note Date of Service: 01/19/17 Narrative: Vital Signs - Last Taken Temp 37.4 C 01/19/17 10:27 Pulse 66 01/19/17 10:27 Resp 17 01/19/17 10:27 BP 100/42 01/19/17 10:36 Pulse Ox 95 01/19/17 10:27 O2 Oxygen Delivery Method Room Air 01/19/17 12:09 ANESTHESIA PROCEDURE NOTE Date of Procedure: 01/19/2017. Time of procedure: 1145. Performed by: Kale Carrington CRNA Chef Manager: None. Preprocedure diagnosis: Urosepsis, difficult IV insertion. Post procedure diagnosis: Same. Procedure: Peripheral vein IV insertion. Indications: This is a 71-year-old male who nursing staff was unable to obtain IV access. Details of the procedure: Skin over the intended target site was cleansed with alcohol. A 22-gauge IV catheter was easily inserted into a right hand vein. A sterile dressing was applied over the insertion site. The line was then flushed with sterile saline solution. EBL: Minimal. Fluids: N/A. Specimen: N/A. Post procedure condition: The patient tolerated the procedure well. No complications were noted. Thank you for this consultation. Kale Carrington CRNA
[2017-01-19] MEDS: PSYLLIUM SEED 1 PACKET PACKET PO SCH (12:24)
[2017-01-19] MEDS: ROSUVASTATIN CALCIUM 10 MG TABLET PO SCH (21:23)
[2017-01-19] MEDS: LATANOPROST 25 DROP BTL EACHEYE SCH (21:27)
[2017-01-19] MEDS: MIRTAZAPINE 15 MG TABLET PO SCH (21:27)
[2017-01-20 05:56] LABS: Hematocrit 31.7 % (42.0-52.0); Hemoglobin 10.3 gm/dL (13.5-18.0); Mean Cell Volume 86.8 fl (78-100); Mean Corpuscular Hemoglobin 28.2 pg (27-31); Mean Corpuscular Hgb Conc 32.5 g/dl (32-36); Mean Platelet Volume 12.5 fl (6.0-9.5); Neutrophil # 6.6 K/mm3 (1.3-6.0); Neutrophil % 72.3 % (42-75.0); Platelet Count 171 K/mm3 (150-450); Red Blood Count 3.65 M/mm3 (4.7-6.0); Red Cell Distribution Width 14.5 % (11.5-14.0); White Blood Count 9.1 K/mm3 (4.0-10.5)
[2017-01-20 06:08] LABS: Anion Gap 11.5 mmol/L (6.8-13.8); BUN/Creatinine Ratio 12.9 (9.0-21.6); Calcium * 8.1 mg/dL (7.9-10.9); Carbon Dioxide 23.3 mmol/L (24-32.6); Estimated Creat Clear 56.7; Potassium 3.8 mmol/L (3.4-4.6)
[2017-01-20] MEDS: GABAPENTIN 100 MG CAPSULE PO SCH ×3 (07:15→20:16)
[2017-01-20] MEDS: PANTOPRAZOLE SODIUM 40 MG TABLET.EC PO SCH (07:16)
[2017-01-20] MEDS: LEVOTHYROXINE SODIUM 100 MCG TABLET PO SCH (07:16)
[2017-01-20] MEDS: ACETAMINOPHEN 325 MG TABLET PO PRN ×2 (07:20→19:28)
--- NOTE | 2017-01-20 07:35 | PN ---
Subjective - Date and Time Seen Date: 01/20/17 Time: 07:29 Subjective Narrative: Patient still having fevers but his WBC today is back to normal. Objective - Review of Systems Generalized/Overall Review: Reports: Weakness, Chills, Fever EENTM: Reports: No Symptoms Reported Respiratory: Denies: Cough, Shortness of Breath, Orthopnea Cardiac: Denies: Chest Pain, Edema, Palpitations Abdominal: Denies: Nausea, Vomiting Genitourinary Symptoms: Reports: Urgency, Frequency, Dysuria Musculoskeletal Complaints: Reports: Joint Pain - Vitals Vitals: Last Vital Signs Temp 39.4 C H 01/20/17 06:15 Pulse 74 01/20/17 06:15 Resp 18 01/20/17 06:15 BP 140/68 01/20/17 06:15 Pulse Ox 91 01/20/17 06:15 - Abnormal Lab Findings Abnormal Lab Findings: Abnormal Lab Results 01/19/17 01/20/17 01/20/17 Range/Units 07:40 05:50 05:50 WBC 12.7 H D (4.0-10.5) K/mm3 RBC 3.40 L 3.65 L (4.7-6.0) M/mm3 Hgb 9.5 L 10.3 L (13.5-18.0) gm/dL Hct 29.1 L 31.7 L (42.0-52.0) % RDW 14.3 H 14.5 H (11.5-14.0) % MPV 11.2 H 12.5 H (6.0-9.5) fl Immature Gran % (Auto) 0.70 H 0.70 H (0.001-0.429) % Immature Gran # (Auto) 0.09 H 0.06 H (0.000-0.0310) K/mm3 Neutrophils % 85.6 H (42-75.0) % Lymphocytes % 7.6 L 16.8 L (20-51) % Monocytes % 9.8 H (0.0-9) % Neutrophils # 10.9 H 6.6 H (1.3-6.0) K/mm3 Lymphocytes # 1.0 L (1.5-3.5) k/mm3 Sodium 129 L (132-142) mmol/L Carbon Dioxide 23.3 L (24-32.6) mmol/L Random Glucose 138 H D (70-110) mg/dL - Exam Constitutional: Present: Alert, Oriented x3, Cooperative ENT Exam: Present: hearing grossly normal Neck: Present: supple Respiratory: Present: decreased breath sounds, No rales, No wheezing Cardiovascular/Chest: Present: regular rate, rhythm, no JVD, no murmur Abdomen: Present: Normal bowel sounds, nontender, nondistended Extremity: Present: no calf tenderness, other - rash on right leg Assessment/Plan - Problems/Diagnosis (1) Sepsis Problem: Resolved Qualifiers: Sepsis type: Escherichia coli Qualified Code(s): A41.51 - Sepsis due to Escherichia coli [E. coli] (2) Lactic acidosis Problem: Acute (3) UTI (urinary tract infection) Problem: Acute Qualifiers: Urinary tract infection type: acute cystitis Hematuria presence: with hematuria Qualified Code(s): N30.01 - Acute cystitis with hematuria Narrative: still having gever although today WBC is back to normal.E.Coli UTI probable acute pyelonephritis ( although denies CVA tenderness). will see if tomorrow his fever will lyze. (4) Diabetes mellitus Problem: Chronic Qualifiers: Diabetes mellitus type: type 2 Diabetes mellitus complication status: without complication (5) Hypertension Problem: Chronic Qualifiers: Hypertension type: essential hypertension Qualified Code(s): I10 - Essential (primary) hypertension (6) Hypothyroidism Problem: Chronic Qualifiers: Hypothyroidism type: acquired Qualified Code(s): E03.9 - Hypothyroidism, unspecified (7) Coronary artery disease Problem: Acute Qualifiers: Coronary Disease-Associated Artery/Lesion type: bypass graft, autologous vein Associated angina: without angina Qualified Code(s): I25.810 - Atherosclerosis of coronary artery bypass graft(s) without angina pectoris (8) Depression Problem: Acute Qualifiers: Depression Type: unspecified Qualified Code(s): F32.9 - Major depressive disorder, single episode, unspecified
[2017-01-20] MEDS: HUM INSULIN NPH/REG INSULIN HM 100 UNIT/ML VIAL SC SCH ×2 (07:40→17:46)
[2017-01-20] MEDS: PSYLLIUM SEED 1 PACKET PACKET PO SCH (09:00)
[2017-01-20] MEDS: FUROSEMIDE 40 MG TABLET PO SCH (09:01)
[2017-01-20] MEDS: APIXABAN 2.5 MG TABLET PO SCH ×2 (09:01→20:16)
[2017-01-20] MEDS: METOPROLOL TARTRATE 25 MG TABLET PO SCH ×2 (09:01→20:16)
[2017-01-20] MEDS: LISINOPRIL 10 MG TABLET PO SCH (09:02)
[2017-01-20] MEDS: ASPIRIN 81 MG TABLET.DR PO SCH (09:02)
[2017-01-20] MEDS: HYDROCORTISONE 30 APPL TUBE TP SCH ×2 (09:02→20:15)
[2017-01-20] MEDS: NYSTATIN 15 APPL BTL TP SCH ×2 (09:02→20:15)
[2017-01-20] MEDS: MIRTAZAPINE 15 MG TABLET PO SCH (20:16)
[2017-01-20] MEDS: LATANOPROST 25 DROP BTL EACHEYE SCH (20:16)
[2017-01-20] MEDS: ROSUVASTATIN CALCIUM 10 MG TABLET PO SCH (20:16)
[2017-01-21] MEDS: GABAPENTIN 100 MG CAPSULE PO SCH ×3 (07:40→20:41)
[2017-01-21] MEDS: ACETAMINOPHEN 325 MG TABLET PO PRN (07:40)
[2017-01-21] MEDS: LEVOTHYROXINE SODIUM 100 MCG TABLET PO SCH (07:40)
[2017-01-21] MEDS: PANTOPRAZOLE SODIUM 40 MG TABLET.EC PO SCH (07:40)
[2017-01-21] MEDS: HUM INSULIN NPH/REG INSULIN HM 100 UNIT/ML VIAL SC SCH ×2 (07:43→17:04)
--- NOTE | 2017-01-21 08:07 | PN ---
Subjective - Date and Time Seen Date: 01/21/17 Time: 08:03 Subjective Narrative: Eating breakfast. Looks depressed. Last fever 10:36 am yesterday Tmax 39.2. Objective - Review of Systems Generalized/Overall Review: Reports: Weakness, Chills, Fever EENTM: Reports: No Symptoms Reported Respiratory: Denies: Cough, Shortness of Breath, Orthopnea Cardiac: Denies: Chest Pain, Edema, Palpitations Abdominal: Denies: Nausea, Vomiting Genitourinary Symptoms: Reports: Frequency. Denies: Urgency, Dysuria Musculoskeletal Complaints: Reports: Joint Pain Neurological: Reports: Depressed - Vitals Vitals: Last Vital Signs Temp 37.3 C 01/21/17 07:36 Pulse 65 01/21/17 07:36 Resp 19 01/21/17 07:36 BP 163/72 01/21/17 07:36 Pulse Ox 96 01/21/17 07:36 - Exam Constitutional: Present: Alert, Oriented x3, Cooperative ENT Exam: Present: hearing grossly normal Neck: Present: non-tender Breasts: Present: Exam deferred Respiratory: Present: decreased breath sounds, No rales, No wheezing Cardiovascular/Chest: Present: regular rate, rhythm, no JVD, no murmur Abdomen: Present: Normal bowel sounds, soft, nontender, nondistended Extremity: Present: no calf tenderness, pedal edema Thoughts: Present: other - depressed Assessment/Plan - Problems/Diagnosis (1) Sepsis Problem: Resolved Qualifiers: Sepsis type: Escherichia coli Qualified Code(s): A41.51 - Sepsis due to Escherichia coli [E. coli] (2) Lactic acidosis Problem: Resolved (3) UTI (urinary tract infection) Problem: Acute Qualifiers: Urinary tract infection type: acute cystitis Hematuria presence: with hematuria Qualified Code(s): N30.01 - Acute cystitis with hematuria Narrative: E.Coli. WBC back to normal. Last fever yesterday moring. Possible discharge in the morning. (4) Diabetes mellitus Problem: Chronic Qualifiers: Diabetes mellitus type: type 2 Diabetes mellitus complication status: without complication (5) Hypertension Problem: Chronic Qualifiers: Hypertension type: essential hypertension Qualified Code(s): I10 - Essential (primary) hypertension (6) Hypothyroidism Problem: Chronic Qualifiers: Hypothyroidism type: acquired Qualified Code(s): E03.9 - Hypothyroidism, unspecified (7) Coronary artery disease Problem: Acute Qualifiers: Coronary Disease-Associated Artery/Lesion type: bypass graft, autologous vein Associated angina: without angina Qualified Code(s): I25.810 - Atherosclerosis of coronary artery bypass graft(s) without angina pectoris (8) Depression Problem: Acute Qualifiers: Depression Type: unspecified Qualified Code(s): F32.9 - Major depressive disorder, single episode, unspecified Narrative: started on Remeron.
[2017-01-21] MEDS: ASPIRIN 81 MG TABLET.DR PO SCH (09:04)
[2017-01-21] MEDS: APIXABAN 2.5 MG TABLET PO SCH ×2 (09:04→20:40)
[2017-01-21] MEDS: METOPROLOL TARTRATE 25 MG TABLET PO SCH ×2 (09:04→20:40)
[2017-01-21] MEDS: FUROSEMIDE 40 MG TABLET PO SCH (09:04)
[2017-01-21] MEDS: HYDROCORTISONE 30 APPL TUBE TP SCH ×2 (09:05→20:41)
[2017-01-21] MEDS: PSYLLIUM SEED 1 PACKET PACKET PO SCH (09:05)
[2017-01-21] MEDS: NYSTATIN 15 APPL BTL TP SCH ×2 (09:05→20:47)
[2017-01-21] MEDS: LISINOPRIL 10 MG TABLET PO SCH (09:05)
[2017-01-21] MEDS: MIRTAZAPINE 15 MG TABLET PO SCH (20:40)
[2017-01-21] MEDS: ROSUVASTATIN CALCIUM 10 MG TABLET PO SCH (20:41)
[2017-01-21] MEDS: LATANOPROST 25 DROP BTL EACHEYE SCH (20:46)
[2017-01-22] MEDS: LEVOTHYROXINE SODIUM 100 MCG TABLET PO SCH (07:06)
[2017-01-22] MEDS: PANTOPRAZOLE SODIUM 40 MG TABLET.EC PO SCH (07:06)
[2017-01-22] MEDS: GABAPENTIN 100 MG CAPSULE PO SCH (07:06)
--- NOTE | 2017-01-22 07:39 | DS ---
(1) Sepsis Problem: Resolved Qualifiers: Sepsis type: Escherichia coli Qualified Code(s): A41.51 - Sepsis due to Escherichia coli [E. coli] (2) Lactic acidosis Problem: Resolved (3) UTI (urinary tract infection) Diagnosis(s): will discharge on PO Cipro Problem: Acute Qualifiers: Urinary tract infection type: acute cystitis Hematuria presence: with hematuria Qualified Code(s): N30.01 - Acute cystitis with hematuria (4) Diabetes mellitus Problem: Chronic Qualifiers: Diabetes mellitus type: type 2 Diabetes mellitus complication status: without complication (5) Hypertension Problem: Chronic Qualifiers: Hypertension type: essential hypertension Qualified Code(s): I10 - Essential (primary) hypertension (6) Hypothyroidism Problem: Chronic Qualifiers: Hypothyroidism type: acquired Qualified Code(s): E03.9 - Hypothyroidism, unspecified (7) Coronary artery disease Problem: Acute Qualifiers: Coronary Disease-Associated Artery/Lesion type: bypass graft, autologous vein Associated angina: without angina Qualified Code(s): I25.810 - Atherosclerosis of coronary artery bypass graft(s) without angina pectoris (8) Depression Problem: Acute Qualifiers: Depression Type: unspecified Qualified Code(s): F32.9 - Major depressive disorder, single episode, unspecified Description of Stay: Angelo Yañez, is a 70-year-old white male, [place] resident, with previous medical history of coronary artery disease, aortic stenosis, diabetes mellitus type 2, hypertension, gout, morbid obesity, obstructive sleep apnea, recent left ankle fusion, who was brought to the emergency room on 01/17/17, because of fever and chills. The patient said that for the last few days before his admission, he had been having fever and chills associated with urinary incontinence and increased frequency of urination. He also had some discomfort when he urinated . He was sent to emergency room where he was found to have a urinary tract infection with a white blood cell count of 18.7, neutrophils of 87.7, lactic acid of 2.9. His chest x-ray showed left basilar atelectasis, scar versus early infiltrate. Patient was given IV Rocephin in the emergency room and blood cultures 2 were taken. He was then admitted or further management. He was kept on IV Rocephin and increased to 2 grams due to persistence of fever/ chills despite the fact that his WBC was improving. His urine C & S grew E. Coli. MARTA showed no complicated findings. His foot xray showed erosive arthritis but clinically had no swelling or redness or swelling. He has not had fever/chills for the last 48 hours. He is stable now to be discharged back to the [place]. Procedures Performed: none Discharge Disposition: [facility] Disposition: [facility] Condition: Fair Discharge Activity: Non-Weight bearing - on left lower extremity Discharge Diet: Consistent carbs Additional Patient Instructions (free text): will follow up patient in the [facility]. Prescriptions (Any new or edited meds): Ciprofloxacin HCl [Cipro] 500 mg PO BID #14 tab Mirtazapine [Remeron] 30 mg PO HS 30 Days Complete Home Medications List: Complete Home Medication List: Atorvastatin Calcium [Lipitor] 80 mg PO DAILY 02/24/15 Levothyroxine Sodium [Synthroid] 100 mcg PO DAILY 02/24/15 Lisinopril [Zestril] 10 mg PO DAILY 02/24/15 Aspirin [Aspir-Low] 81 mg PO DAILY 12/14/16 Furosemide [Lasix] 40 mg PO DAILY 12/14/16 Acetaminophen [Tylenol] 650 mg PO Q6H PRN 01/17/17 Albuterol Sulfate [Ventolin Hfa] 1 puff IH DAILY PRN 01/17/17 Apixaban [Eliquis] 5 mg PO BID 01/17/17 Fluticasone Propionate [Flovent Diskus] 50 mcg NS DAILY PRN 01/17/17 Gabapentin 100 mg PO TID 01/17/17 Hydrocortisone [Hydrocortisone 1% Ointment] 1 appl TP BID 01/17/17 Insulin NPH Hum/Reg Insulin Hm [Humulin 70-30] 8 unit SC QPM 01/17/17 Insulin NPH Hum/Reg Insulin Hm [Humulin 70-30] 30 unit SC QAM 01/17/17 Latanoprost [Xalatan] 1 drop EACHEYE HS 01/17/17 Magnesium Hydroxide [Milk of Magnesia] 30 ml PO DAILY PRN 01/17/17 Metoprolol Tartrate [Lopressor] 25 mg PO BID 01/17/17 Nystatin [Nystop] 1 appl TP BID 01/17/17 Pantoprazole Sodium 40 mg PO DAILY 01/17/17 Tamsulosin HCl [Flomax] 0.4 mg PO DAILY 01/17/17 Wheat Dextrin [Benefiber] 1 each PO DAILY 01/17/17 traMADol HCL [Ultram] 50 mg PO Q6H PRN 01/17/17 Ciprofloxacin HCl [Cipro] 500 mg PO BID #14 tab 01/22/17 Mirtazapine [Remeron] 30 mg PO HS 30 Days 01/22/17
[2017-01-22 07:58] LABS: Hemoglobin 10.2 gm/dL (13.5-18.0); Mean Cell Volume 84.7 fl (78-100); Mean Corpuscular Hemoglobin 27.9 pg (27-31); Mean Corpuscular Hgb Conc 32.9 g/dl (32-36); Mean Platelet Volume 11.4 fl (6.0-9.5); Neutrophil # 5.1 K/mm3 (1.3-6.0); Neutrophil % 57.8 % (42-75.0); Platelet Count 232 K/mm3 (150-450); Red Blood Count 3.66 M/mm3 (4.7-6.0); Red Cell Distribution Width 14.3 % (11.5-14.0); White Blood Count 8.9 K/mm3 (4.0-10.5)
[2017-01-22] MEDS: HUM INSULIN NPH/REG INSULIN HM 100 UNIT/ML VIAL SC SCH (08:04)
[2017-01-22 08:09] LABS: Anion Gap 9.1 mmol/L (6.8-13.8); BUN/Creatinine Ratio 9.8 (9.0-21.6); Calcium * 8.7 mg/dL (7.9-10.9); Carbon Dioxide 32.5 mmol/L (24-32.6); Estimated Creat Clear 64.5; Potassium 3.6 mmol/L (3.4-4.6); Uric Acid 6.5 mg/dL (2.6-7.2)
[2017-01-22] MEDS: APIXABAN 2.5 MG TABLET PO SCH (08:51)
[2017-01-22] MEDS: LISINOPRIL 10 MG TABLET PO SCH (08:52)
[2017-01-22] MEDS: HYDROCORTISONE 30 APPL TUBE TP SCH (08:52)
[2017-01-22] MEDS: ASPIRIN 81 MG TABLET.DR PO SCH (08:52)
[2017-01-22] MEDS: PSYLLIUM SEED 1 PACKET PACKET PO SCH (08:52)
[2017-01-22] MEDS: FUROSEMIDE 40 MG TABLET PO SCH (08:52)
[2017-01-22] MEDS: METOPROLOL TARTRATE 25 MG TABLET PO SCH (08:53)
[2017-01-22] MEDS: NYSTATIN 15 APPL BTL TP SCH (08:55)
[2017-01-22 10:30] VITALS: BP 126/60
== END 2017-01-22 13:05 | DRG 872 ==
LOC: ER 10:45 → MS 12:01 → OBSVTOIN 01-18 08:03
PROVIDERS: ADMIT Internal Medicine; ATTEND Internal Medicine
PROC: 05HG33Z Insertion of Infusion Device into Right Hand Vein, Percutaneous Approach (ICD-10-PCS; principal; 2017-01-19)
DX: A41.51 Sepsis due to Escherichia coli [E. coli] (principal); E87.2 Acidosis; N30.01 Acute cystitis with hematuria; I25.810 Atherosclerosis of coronary artery bypass graft(s) without angina pectoris; I10 Essential (primary) hypertension; E11.9 Type 2 diabetes mellitus without complications; E03.9 Hypothyroidism, unspecified; F32.9 Major depressive disorder, single episode, unspecified
CPT/HCPCS: 36415; 71010; 73630; 76770; 80048; 80053; 81001; 82272; 83605; 84550; 85007; 85025; 85652; 86140; 87040; 87081; 87086; 93005; 94660; 96365; 99284; G0378